=== PATIENT | female | born 1960 | race Caucasian/White ===

== ENCOUNTER → 2016-03-28 | Outpatient (REF) | payer BC, OTHER ==
[~2016-03-28] MED LIST: DIOV320T6 PO; IBUP600T26 PO; OMEP20CA3 PO; SING10TA32 PO
[2016-03-29 10:08] LABS: TOTAL VOLUME, URINE 2750 ML
== END ==
LOC: M LAB REF 08:30
PROVIDERS: ATTEND Internal Medicine Medical Oncology
DX: C90.00 Multiple myeloma not having achieved remission (principal)

== ENCOUNTER → 2016-03-29 | Outpatient (REF) | payer BC, OTHER ==
[2016-03-29 13:51] LABS: IMMUNOGLOBULIN A 25.2 MG/DL (70-400); IMMUNOGLOBULIN G 1200 MG/DL (681-1648); TOTAL PROTEIN 6.7 GM/DL (6.4-8.2)
[2016-03-29 13:52] LABS: IMMUNOGLOBULIN M 14.9 MG/DL (40-230)
[2016-03-31 00:07] LABS: FREE KAPPA LIGHT CHAINS SERUM 72.45 mg/L (3.30-19.40); FREE LAMBDA LIGHT CHAINS SERUM 10.96 mg/L (5.71-26.30); KAPPA/LAMBDA RATIO SERUM 6.61 (0.26-1.65)
[2016-04-01 12:45] LABS: ALBUMIN 3.98 GM/DL (3.29-5.55); ALBUMIN % 59.4 % (55.8-66.1); GAMMA GLOBULIN % 16.4 % (11.1-18.8)
== END ==
LOC: M LAB REF 12:36
PROVIDERS: ATTEND Internal Medicine Medical Oncology
DX: C90.00 Multiple myeloma not having achieved remission (principal)

== ENCOUNTER → 2016-05-07 | Outpatient (REF) | payer BC, OTHER ==
[2016-05-07 19:49] LABS: IMMUNOGLOBULIN G 1370 MG/DL (681-1648); TOTAL PROTEIN 7.3 GM/DL (6.4-8.2)
[2016-05-07 20:21] LABS: IMMUNOGLOBULIN A 24.8 MG/DL (70-400); IMMUNOGLOBULIN M 13.8 MG/DL (40-230)
[2016-05-09 13:10] LABS: ALBUMIN 4.25 GM/DL (3.29-5.55); ALBUMIN % 58.2 % (55.8-66.1); GAMMA GLOBULIN % 18.1 % (11.1-18.8)
[2016-05-10 00:08] LABS: FREE KAPPA LIGHT CHAINS SERUM 87.19 mg/L (3.30-19.40); FREE LAMBDA LIGHT CHAINS SERUM 9.1 mg/L (5.71-26.30); KAPPA/LAMBDA RATIO SERUM 9.58 (0.26-1.65)
== END ==
LOC: M LAB REF 16:51
PROVIDERS: ATTEND Internal Medicine Medical Oncology
DX: C90.00 Multiple myeloma not having achieved remission (principal)

== ENCOUNTER → 2016-06-24 | Outpatient (REF) | payer OTHER ==
[2016-06-24 19:50] LABS: IMMUNOGLOBULIN G 1870 MG/DL (681-1648); TOTAL PROTEIN 7.4 GM/DL (6.4-8.2)
[2016-06-24 20:43] LABS: IMMUNOGLOBULIN A 23.1 MG/DL (70-400); IMMUNOGLOBULIN M 15.9 MG/DL (40-230)
[2016-06-27 00:06] LABS: FREE KAPPA LIGHT CHAINS SERUM 234.94 mg/L (3.30-19.40); FREE LAMBDA LIGHT CHAINS SERUM 8.54 mg/L (5.71-26.30); KAPPA/LAMBDA RATIO SERUM 27.51 (0.26-1.65)
[2016-06-27 12:26] LABS: ALBUMIN 4.07 GM/DL (3.29-5.55); GAMMA GLOBULIN % 21.8 % (11.1-18.8)
== END ==
LOC: M LAB REF 16:55
PROVIDERS: ATTEND Internal Medicine Medical Oncology
DX: C90.00 Multiple myeloma not having achieved remission (principal)

== ENCOUNTER → 2016-07-02 | Outpatient (REF) | payer OTHER | LOC: M LAB REF 16:59 | PROVIDERS: ATTEND Internal Medicine Medical Oncology | DX: Z01.84 Encounter for antibody response examination (principal) ==

== ENCOUNTER → 2016-07-03 | Outpatient (CLI) | payer OTHER ==
--- NOTE | 2016-07-08 12:26 | REP ---
PET/CT: HISTORY: Restaging multiple myeloma. The patient is status post transplant in 2016 with sharp rise in kappa light chains. Question high marrow disease. COMPARISONS: No comparison PET/CT. Comparison CT study of the chest is from October 28, 2014. Skeletal survey and skull series from 06/24/2014. TECHNIQUE: 85 minutes following the intravenous injection of a 8.2 mCi dose of F-18 FDG, three-dimensional PET scintigraphy is acquired from the skull base to the proximal thighs. Triplanar noncontrast CT scanning is acquired through the same anatomic range for attenuation correction, and image registration with scan parameters optimized to minimize radiation exposure to the patient. PET scintigraphy and CT datasets were fused and displayed on a workstation with multiplanar and projection display capability. PET/CT FINDINGS: There is normal variant skeletal muscle uptake in the pectoralis major muscles, left greater than right as well as along the right latissimus dorsi muscle. No mass lesion is seen here. This is felt to be a normal variant. There is hypermetabolic uptake noted in a normal size left axillary lymph node. Maximum standard uptake value here is 5.4. The lymph node in question has a preserved hilar architecture and measures 8 x 15 mm. No other axillary hypermetabolic evon focus is seen. No abnormal hypermetabolic uptake is seen within the chest. The left thyroid gland is enlarged and somewhat heterogeneous but not hypermetabolic. In the abdomen and pelvis, normal hepatic, splenic, gastrointestinal, and genitourinary FDG accumulation is seen. The patient is status post cholecystectomy. No abnormal skeletal hypermetabolic uptake focus is appreciated. No pulmonary parenchymal abnormality. IMPRESSION: 1. Hypermetabolic uptake is seen in a morphologically normal appearing left axillary lymph node. This is of uncertain significance. 2. Heterogeneous enlargement left thyroid without hypermetabolic uptake. 3. No abnormal skeletal hypermetabolic uptake or other hypermetabolic focus seen. Signed by Juan Mratinez MD 07/08/2016 03:42 P
== END ==
LOC: M PLARAD 07:24
PROVIDERS: ATTEND Internal Medicine Medical Oncology
DX: C90.02 Multiple myeloma in relapse (principal); R76.8 Other specified abnormal immunological findings in serum; Z98.890 Other specified postprocedural states
CPT/HCPCS: 78815; A9552

== ENCOUNTER → 2016-07-25 | Outpatient (REF) | payer OTHER | LOC: M LAB REF 11:30 | PROVIDERS: ATTEND Internal Medicine Medical Oncology | DX: C90.01 Multiple myeloma in remission (principal) ==

== ENCOUNTER → 2016-08-08 | Outpatient (REF) | payer OTHER ==
[2016-08-08 17:46] LABS: IMMUNOGLOBULIN A 25.4 MG/DL (70-400); IMMUNOGLOBULIN G 2800 MG/DL (681-1648); IMMUNOGLOBULIN M 23.7 MG/DL (40-230); TOTAL PROTEIN 8.6 GM/DL (6.4-8.2)
[2016-08-09 14:13] LABS: ALBUMIN 4.07 GM/DL (3.29-5.55); ALBUMIN % 47.3 % (55.8-66.1); GAMMA GLOBULIN % 29.5 % (11.1-18.8)
[2016-08-11 00:06] LABS: BETA 2 MICROGLOBULIN 2.7 mg/L (0.6-2.4); FREE LAMBDA LIGHT CHAINS SERUM 13.9 mg/L (5.7-26.3); KAPPA/LAMBDA RATIO SERUM 48.13 (0.26-1.65)
== END ==
LOC: M LAB REF 16:52
PROVIDERS: ATTEND Internal Medicine Medical Oncology
DX: C90.00 Multiple myeloma not having achieved remission (principal)

== ENCOUNTER → 2016-09-17 | Outpatient (REF) | payer OTHER ==
[~2016-09-17] MED LIST changes: +IBUP-1022 PO; -IBUP600T26 PO
[2016-09-17 18:50] LABS: IMMUNOGLOBULIN G 1750 MG/DL (681-1648); TOTAL PROTEIN 7.1 GM/DL (6.4-8.2)
[2016-09-17 18:51] LABS: IMMUNOGLOBULIN A 18.5 MG/DL (70-400); IMMUNOGLOBULIN M 17.6 MG/DL (40-230)
[2016-09-18 13:03] LABS: ALBUMIN 3.78 GM/DL (3.29-5.55); ALBUMIN % 53.2 % (55.8-66.1); GAMMA GLOBULIN % 23.2 % (11.1-18.8)
[2016-09-20 00:07] LABS: BETA 2 MICROGLOBULIN 1.6 mg/L (0.6-2.4); FREE KAPPA LIGHT CHAINS SERUM 226.4 mg/L (3.3-19.4); FREE LAMBDA LIGHT CHAINS SERUM 6.8 mg/L (5.7-26.3); KAPPA/LAMBDA RATIO SERUM 33.29 (0.26-1.65)
== END ==
LOC: M LAB REF 17:07
PROVIDERS: ATTEND Internal Medicine Medical Oncology
DX: C90.00 Multiple myeloma not having achieved remission (principal)

== ENCOUNTER → 2016-10-15 | Outpatient (REF) | payer OTHER ==
[2016-10-15 18:45] LABS: IMMUNOGLOBULIN G 1780 MG/DL (681-1648); TOTAL PROTEIN 7.5 GM/DL (6.4-8.2)
[2016-10-15 18:46] LABS: IMMUNOGLOBULIN A 15.1 MG/DL (70-400); IMMUNOGLOBULIN M 20.1 MG/DL (40-230)
[2016-10-17 10:45] LABS: ALBUMIN 4.13 GM/DL (3.29-5.55)
[2016-10-17 10:46] LABS: GAMMA GLOBULIN % 21.9 % (11.1-18.8)
[2016-10-18 14:17] LABS: FREE KAPPA LIGHT CHAINS SERUM 296.3 mg/L (3.3-19.4); KAPPA/LAMBDA RATIO SERUM 42.33 (0.26-1.65)
== END ==
LOC: M LAB REF 16:28
PROVIDERS: ATTEND Internal Medicine Medical Oncology
DX: C90.00 Multiple myeloma not having achieved remission (principal)

== ENCOUNTER → 2016-10-18 | Outpatient (CLI) | payer OTHER ==
--- NOTE | 2016-10-18 14:34 | REPMRS ---
Patient History The patient states she had a clinical breast exam in 10/2016. Patient is postmenopausal and has history of Multiple Myeloma at age 54. No known family history of cancer. Digital Woman Screen Mammo: October 18, 2016 - Exam #: [id number] Bilateral CC and MLO view(s) were taken. Technologist: Angelica Abdi Technologist Prior study comparison: October 19, 2015, digital woman screen mammo performed at [facility] to [place]. June 25, 2012, digital woman screen mammo performed at [facility]. FINDINGS: There are scattered fibroglandular densities. There has been no change in the appearance of the mammogram from the prior studies. There is a mild amount of residual fibroglandular tissue which is fairly symmetric. There is no interval development of dominant mass, architectural distortion, or clustered microcalcification suggestive of malignancy. ASSESSMENT: BI-RADS/ACR category 1 mammogram. Negative. Recommendation Routine screening mammogram in 1 year (for women over age 40). This mammogram was interpreted with the aid of an FDA-approved computer-aided dectection system. Electronically Signed By: Ciro Ruth MD 10/18/16 [id number]
== END ==
LOC: M WHC 13:32
PROVIDERS: ATTEND Nurse Practitioner Family
DX: Z12.31 Encounter for screening mammogram for malignant neoplasm of breast (principal); Z78.0 Asymptomatic menopausal state

== ENCOUNTER → 2016-10-18 | Outpatient (REF) | payer OTHER | LOC: M SFHCWAGY 13:52 | PROVIDERS: ATTEND Nurse Practitioner Family | DX: Z12.4 Encounter for screening for malignant neoplasm of cervix (principal); Z12.12 Encounter for screening for malignant neoplasm of rectum; R87.615 Unsatisfactory cytologic smear of cervix ==

== ENCOUNTER → 2016-11-05 | Outpatient (REF) | payer OTHER ==
[2016-11-05 19:06] LABS: TOTAL PROTEIN 7.3 GM/DL (6.4-8.2)
[2016-11-07 14:25] LABS: ALBUMIN 4.02 GM/DL (3.29-5.55); ALBUMIN % 55.1 % (55.8-66.1); GAMMA GLOBULIN % 22.4 % (11.1-18.8)
[2016-11-09 00:06] LABS: FREE KAPPA LIGHT CHAINS SERUM 291.6 mg/L (3.3-19.4); FREE LAMBDA LIGHT CHAINS SERUM 8.8 mg/L (5.7-26.3); KAPPA/LAMBDA RATIO SERUM 33.14 (0.26-1.65)
== END ==
LOC: M LAB REF 16:56
PROVIDERS: ATTEND Internal Medicine Medical Oncology
DX: C90.00 Multiple myeloma not having achieved remission (principal)

== ENCOUNTER → 2016-12-05 | Outpatient (REF) | payer OTHER ==
[2016-12-05 20:04] LABS: IMMUNOGLOBULIN G 1760 MG/DL (681-1648); TOTAL PROTEIN 6.6 GM/DL (6.4-8.2)
[2016-12-05 21:33] LABS: IMMUNOGLOBULIN A 15.2 MG/DL (70-400); IMMUNOGLOBULIN M 20.6 MG/DL (40-230)
[2016-12-08 00:06] LABS: FREE KAPPA LIGHT CHAINS SERUM 310.2 mg/L (3.3-19.4); KAPPA/LAMBDA RATIO SERUM 28.2 (0.26-1.65)
[2016-12-09 10:48] LABS: ALBUMIN % 50.1 % (55.8-66.1)
[2016-12-09 10:49] LABS: ALBUMIN 3.31 GM/DL (3.29-5.55); GAMMA GLOBULIN % 21.7 % (11.1-18.8)
== END ==
LOC: M LAB REF 17:09
PROVIDERS: ATTEND Internal Medicine Medical Oncology
DX: C90.00 Multiple myeloma not having achieved remission (principal)

== ENCOUNTER → 2016-12-16 | Outpatient (REF) | payer OTHER ==
[2016-12-16 13:11] LABS: ALBUMIN 3.1 GM/DL (3.2-5.2); ALKALINE PHOSPHATASE 74 U/L (45-117); ALT/SGPT 27 U/L (12-78); ANION GAP 6 MEQ/L (8-16); AST/SGOT 15 U/L (15-37); BILIRUBIN,TOTAL 0.5 MG/DL (0.2-1.0); BLOOD UREA NITROGEN 10 MG/DL (7-18); CALCIUM LEVEL 8.4 MG/DL (8.5-10.1); CARBON DIOXIDE LEVEL 27 MEQ/L (21-32); CHLORIDE LEVEL 108 MEQ/L (98-107); CHOLESTEROL LEVEL 178 MG/DL (<200); GLOMERULAR FILTRATION RATE > 60.0 (>51); GLUCOSE, FASTING 82 MG/DL (70-105); POTASSIUM SERUM 3.8 MEQ/L (3.5-5.1); SODIUM LEVEL 141 MEQ/L (136-145); TOTAL PROTEIN 7.5 GM/DL (6.4-8.2); TRIGLYCERIDES LEVEL 90 MG/DL (<150)
== END ==
LOC: M SFHCPLAZ 10:47
PROVIDERS: ATTEND Nurse Practitioner Family
DX: E88.81 Metabolic syndrome and other insulin resistance (principal); E78.5 Hyperlipidemia, unspecified; E55.9 Vitamin D deficiency, unspecified

== ENCOUNTER → 2017-02-04 | Outpatient (REF) | payer OTHER | LOC: M SFHCWAGY 09:31 | PROVIDERS: ATTEND Nurse Practitioner Family | DX: Z12.4 Encounter for screening for malignant neoplasm of cervix (principal) ==

== ENCOUNTER → 2017-02-05 | Outpatient (CLI) | payer OTHER ==
--- NOTE | 2017-02-06 08:20 | REP ---
PELVIC ULTRASOUND: CLINICAL: Postmenopausal bleeding. TECHNIQUE: Transabdominal and pelvic ultrasound followed by transvaginal examination for better evaluation of the endometrium and adnexa. FINDINGS: Heterogeneous anteverted uterus deviates to the right and measures 5.9 x 2.6 x 3.7 cm. The endometrial complex measures 3.9 mm thickness. No discrete uterine or endometrial abnormalities are appreciated. Bilateral ovaries are normal in appearance. Right ovary measures 1.8 x 0.8 x 1.6 cm. Left ovary measures 2.1 x 0.9 x 1.5 cm. No pelvic fluid or adnexal mass lesions. Bladder is normal and measures 6.3 x 7.5 x 4.3 cm. IMPRESSION: Normal pelvic ultrasound.
== END ==
LOC: M WHC 09:28
PROVIDERS: ATTEND Nurse Practitioner Family
DX: N95.0 Postmenopausal bleeding (principal)

== ENCOUNTER → 2017-02-13 | Outpatient (REF) | payer OTHER ==
[2017-02-13 14:45] LABS: TOTAL PROTEIN 7.9 GM/DL (6.4-8.2)
[2017-02-13 16:08] LABS: IMMUNOGLOBULIN A 14.8 MG/DL (70-400)
[2017-02-13 16:09] LABS: IMMUNOGLOBULIN G 2440 MG/DL (681-1648); IMMUNOGLOBULIN M 24.7 MG/DL (40-230)
[2017-02-15 02:09] LABS: BETA 2 MICROGLOBULIN 2.7 mg/L (0.6-2.4); FREE KAPPA LIGHT CHAINS SERUM 636.6 mg/L (3.3-19.4); FREE LAMBDA LIGHT CHAINS SERUM 9.4 mg/L (5.7-26.3); KAPPA/LAMBDA RATIO SERUM 67.72 (0.26-1.65)
[2017-02-17 13:40] LABS: ALBUMIN 3.88 GM/DL (3.29-5.55); ALBUMIN % 49.1 % (55.8-66.1); GAMMA GLOBULIN % 28.2 % (11.1-18.8)
== END ==
LOC: M LAB REF 13:53
PROVIDERS: ATTEND Internal Medicine Medical Oncology
DX: C90.00 Multiple myeloma not having achieved remission (principal)

== ENCOUNTER → 2017-03-17 | Outpatient (REF) | payer BC, OTHER ==
[2017-03-17 14:36] LABS: IMMUNOGLOBULIN G 2570 MG/DL (681-1648); IMMUNOGLOBULIN M 21.3 MG/DL (40-230); TOTAL PROTEIN 8.3 GM/DL (6.4-8.2)
[2017-03-19 00:08] LABS: FREE KAPPA LIGHT CHAINS SERUM 710.8 mg/L (3.3-19.4); FREE LAMBDA LIGHT CHAINS SERUM 8.4 mg/L (5.7-26.3); KAPPA/LAMBDA RATIO SERUM 84.62 (0.26-1.65)
[2017-03-21 10:44] LABS: ALBUMIN 4.08 GM/DL (3.29-5.55); ALBUMIN % 49.1 % (55.8-66.1); ALPHA-1-GLOBULIN % 3.5 % (2.9-4.9); ALPHA-1-GLOBULINS 0.29 GM/DL (0.17-0.41); ALPHA-2-GLOBULINS % 8.6 % (7.1-11.8); BETA-1-GLOBULINS % 5.5 % (4.7-7.2); BETA-2-GLOBULINS % 3.4 % (3.2-6.5); GAMMA GLOBULIN % 29.9 % (11.1-18.8)
[2017-03-21 10:45] LABS: ALPHA-2-GLOBULINS 0.71 GM/DL (0.42-0.99); BETA-1-GLOBULINS 0.46 GM/DL (0.28-0.60); BETA-2-GLOBULINS 0.28 GM/DL (0.19-0.55); GAMMA GLOBULINS 2.48 GM/DL (0.65-1.58)
== END ==
LOC: M LAB REF 12:46
DX: C90.00 Multiple myeloma not having achieved remission (principal)
CPT/HCPCS: 84165

== ENCOUNTER → 2017-04-14 | Outpatient (REF) | payer BC ==
[2017-04-14 19:41] LABS: URINE TOTAL PROTEIN 40.7 MG/DL (0-12)
[2017-04-14 20:16] LABS: IMMUNOGLOBULIN G 2500 MG/DL (681-1648); IMMUNOGLOBULIN M 21.4 MG/DL (40-230); TOTAL PROTEIN 8.3 GM/DL (6.4-8.2)
[2017-04-14 20:45] LABS: IMMUNOGLOBULIN A < 7.8 MG/DL (70-400)
[2017-04-15 11:32] LABS: ALBUMIN 4.17 GM/DL (3.29-5.55); ALBUMIN % 50.3 % (55.8-66.1); ALPHA-1-GLOBULIN % 3.6 % (2.9-4.9); ALPHA-2-GLOBULINS 0.72 GM/DL (0.42-0.99); ALPHA-2-GLOBULINS % 8.7 % (7.1-11.8); BETA-1-GLOBULINS 0.42 GM/DL (0.28-0.60); BETA-2-GLOBULINS 0.27 GM/DL (0.19-0.55); BETA-2-GLOBULINS % 3.3 % (3.2-6.5); GAMMA GLOBULIN % 29.1 % (11.1-18.8); GAMMA GLOBULINS 2.42 GM/DL (0.65-1.58)
[2017-04-16 14:08] LABS: UPEP INTERPRETATION 2 M-SPIKES IN GAMMA; URINE VOLUME RANDOM ML
== END ==
LOC: M LAB REF 17:08
DX: C90.00 Multiple myeloma not having achieved remission (principal)
CPT/HCPCS: 84165

== ENCOUNTER → 2017-05-05 | Outpatient (CLI) | payer BC | LOC: M RAD 13:52 | DX: C90.00 Multiple myeloma not having achieved remission (principal) ==

== ENCOUNTER → 2017-05-14 | Outpatient (CLI) | payer BC | LOC: M CARPUL 09:23 | DX: C90.00 Multiple myeloma not having achieved remission (principal) | CPT/HCPCS: 93306 ==

== ENCOUNTER → 2017-05-26 | Outpatient (REF) | payer BC ==
[2017-05-26 20:03] LABS: URINE TOTAL PROTEIN 113.9 MG/DL (0-12)
[2017-05-26 20:40] LABS: IMMUNOGLOBULIN G 2680 MG/DL (681-1648); TOTAL PROTEIN 8.1 GM/DL (6.4-8.2)
[2017-05-26 20:50] LABS: IMMUNOGLOBULIN A < 7.8 MG/DL (70-400); IMMUNOGLOBULIN M 15.3 MG/DL (40-230)
[2017-05-28 11:08] LABS: ALBUMIN % 50.5 % (55.8-66.1); ALPHA-1-GLOBULIN % 3.7 % (2.9-4.9); ALPHA-2-GLOBULINS % 7.1 % (7.1-11.8)
[2017-05-28 11:09] LABS: ALBUMIN 4.09 GM/DL (3.29-5.55); ALPHA-2-GLOBULINS 0.58 GM/DL (0.42-0.99); BETA-1-GLOBULINS 0.41 GM/DL (0.28-0.60); BETA-1-GLOBULINS % 5.1 % (4.7-7.2); BETA-2-GLOBULINS 0.24 GM/DL (0.19-0.55); GAMMA GLOBULIN % 30.6 % (11.1-18.8); GAMMA GLOBULINS 2.48 GM/DL (0.65-1.58)
[2017-05-29 00:07] LABS: FREE KAPPA LIGHT CHAINS SERUM 1094.1 mg/L (3.3-19.4); FREE LAMBDA LIGHT CHAINS SERUM 3.8 mg/L (5.7-26.3); KAPPA/LAMBDA RATIO SERUM 287.92 (0.26-1.65)
[2017-05-29 00:07] LABS: BETA 2 MICROGLOBULIN 3.3 mg/L (0.6-2.4)
[2017-05-29 13:59] LABS: UPEP INTERPRETATION M-SPIKE IN GAMMA
== END ==
LOC: M LAB REF 16:54
DX: C90.00 Multiple myeloma not having achieved remission (principal)
CPT/HCPCS: 84165

== ENCOUNTER → 2017-06-23 | Outpatient (REF) | payer BC | LOC: M LAB REF 12:51 | DX: C90.00 Multiple myeloma not having achieved remission (principal) | CPT/HCPCS: 88300 ==

== ENCOUNTER → 2017-07-02 | Outpatient (REF) | payer BC ==
[2017-07-02 12:04] LABS: TOTAL 25(OH) VITAMIN D 52.3 NG/ML (30.0-100.0)
[2017-07-02 12:07] LABS: ALBUMIN 3.5 GM/DL (3.2-5.2); ALBUMIN/GLOBULIN RATIO 0.66 (1.00-1.93); ALKALINE PHOSPHATASE 62 U/L (45-117); ALT/SGPT 28 U/L (12-78); ANION GAP 4 MEQ/L (8-16); AST/SGOT 24 U/L (7-37); BILIRUBIN,TOTAL 0.7 MG/DL (0.2-1.0); BLOOD UREA NITROGEN 15 MG/DL (7-18); CALCIUM LEVEL 8.7 MG/DL (8.5-10.1); CARBON DIOXIDE LEVEL 28 MEQ/L (21-32); CHLORIDE LEVEL 107 MEQ/L (98-107); CREATININE FOR GFR 0.78 MG/DL (0.55-1.30); GLOMERULAR FILTRATION RATE > 60.0 (>51); GLUCOSE, FASTING 84 MG/DL (70-100); SODIUM LEVEL 139 MEQ/L (136-145); TOTAL PROTEIN 8.8 GM/DL (6.4-8.2)
== END ==
LOC: M SFHCPLAZ 09:01
DX: E88.81 Metabolic syndrome and other insulin resistance (principal); K21.9 Gastro-esophageal reflux disease without esophagitis; E55.9 Vitamin D deficiency, unspecified
CPT/HCPCS: 83735

== ENCOUNTER → 2017-08-04 | Outpatient (REF) | payer BC ==
[2017-08-04 15:46] LABS: IMMUNOGLOBULIN G 1280 MG/DL (681-1648); TOTAL PROTEIN 6.8 GM/DL (6.4-8.2)
[2017-08-04 16:28] LABS: IMMUNOGLOBULIN A < 7.8 MG/DL (70-400); IMMUNOGLOBULIN M 17.1 MG/DL (40-230)
[2017-08-05 14:43] LABS: ALBUMIN 3.99 GM/DL (3.29-5.55); ALBUMIN % 58.7 % (55.8-66.1); ALPHA-1-GLOBULINS 0.27 GM/DL (0.17-0.41); ALPHA-2-GLOBULINS 0.67 GM/DL (0.42-0.99); ALPHA-2-GLOBULINS % 9.8 % (7.1-11.8); BETA-1-GLOBULINS 0.45 GM/DL (0.28-0.60); BETA-1-GLOBULINS % 6.6 % (4.7-7.2); BETA-2-GLOBULINS 0.22 GM/DL (0.19-0.55); BETA-2-GLOBULINS % 3.3 % (3.2-6.5); GAMMA GLOBULIN % 17.6 % (11.1-18.8)
[2017-08-07 10:16] LABS: FREE KAPPA LIGHT CHAINS SERUM 33.1 mg/L (3.3-19.4); FREE LAMBDA LIGHT CHAINS SERUM 2.7 mg/L (5.7-26.3); KAPPA/LAMBDA RATIO SERUM 12.26 (0.26-1.65)
== END ==
LOC: M LAB REF 14:29
DX: C90.02 Multiple myeloma in relapse (principal); D70.1 Agranulocytosis secondary to cancer chemotherapy; T45.1X5A Adverse effect of antineoplastic and immunosuppressive drugs, initial encounter
CPT/HCPCS: 84165

== ENCOUNTER → 2017-09-08 | Outpatient (REF) | payer BC ==
[2017-09-08 14:53] LABS: IMMUNOGLOBULIN G 775 MG/DL (681-1648); TOTAL PROTEIN 6.5 GM/DL (6.4-8.2)
[2017-09-08 15:51] LABS: IMMUNOGLOBULIN A < 7.8 MG/DL (70-400); IMMUNOGLOBULIN M 8.64 MG/DL (40-230)
[2017-09-09 11:40] LABS: ALBUMIN 4.02 GM/DL (3.29-5.55); ALBUMIN % 61.9 % (55.8-66.1); ALPHA-1-GLOBULIN % 4.4 % (2.9-4.9); ALPHA-1-GLOBULINS 0.29 GM/DL (0.17-0.41); ALPHA-2-GLOBULINS 0.64 GM/DL (0.42-0.99); ALPHA-2-GLOBULINS % 9.9 % (7.1-11.8); BETA-1-GLOBULINS 0.47 GM/DL (0.28-0.60); BETA-1-GLOBULINS % 7.2 % (4.7-7.2); BETA-2-GLOBULINS 0.27 GM/DL (0.19-0.55); BETA-2-GLOBULINS % 4.2 % (3.2-6.5); GAMMA GLOBULIN % 12.4 % (11.1-18.8); GAMMA GLOBULINS 0.81 GM/DL (0.65-1.58)
[2017-09-10 00:08] LABS: FREE KAPPA LIGHT CHAINS SERUM 15.5 mg/L (3.3-19.4); KAPPA/LAMBDA RATIO SERUM 7.75 (0.26-1.65)
== END ==
LOC: M LAB REF 13:36
DX: C90.02 Multiple myeloma in relapse (principal); D70.1 Agranulocytosis secondary to cancer chemotherapy; T45.1X5A Adverse effect of antineoplastic and immunosuppressive drugs, initial encounter; T50.905A Adverse effect of unspecified drugs, medicaments and biological substances, initial encounter
CPT/HCPCS: 84165

== ENCOUNTER → 2017-09-15 | Outpatient (REF) | payer BC ==
[2017-09-15 18:45] LABS: IMMUNOGLOBULIN G 760 MG/DL (681-1648); TOTAL PROTEIN 6.3 GM/DL (6.4-8.2)
[2017-09-15 19:09] LABS: IMMUNOGLOBULIN A < 7.8 MG/DL (70-400); IMMUNOGLOBULIN M 11.5 MG/DL (40-230)
[2017-09-17 12:01] LABS: BETA 2 MICROGLOBULIN 2.1 mg/L (0.6-2.4)
[2017-09-17 12:01] LABS: FREE KAPPA LIGHT CHAINS SERUM 12.8 mg/L (3.3-19.4); FREE LAMBDA LIGHT CHAINS SERUM 1.8 mg/L (5.7-26.3); KAPPA/LAMBDA RATIO SERUM 7.11 (0.26-1.65)
[2017-09-17 12:31] LABS: ALBUMIN 3.99 GM/DL (3.29-5.55); ALBUMIN % 63.3 % (55.8-66.1); ALPHA-1-GLOBULINS 0.25 GM/DL (0.17-0.41); ALPHA-2-GLOBULINS 0.63 GM/DL (0.42-0.99); BETA-1-GLOBULINS 0.44 GM/DL (0.28-0.60); BETA-2-GLOBULINS 0.23 GM/DL (0.19-0.55); BETA-2-GLOBULINS % 3.6 % (3.2-6.5); GAMMA GLOBULIN % 12.1 % (11.1-18.8); GAMMA GLOBULINS 0.76 GM/DL (0.65-1.58)
== END ==
LOC: M LAB REF 14:00
DX: C90.02 Multiple myeloma in relapse (principal); D70.1 Agranulocytosis secondary to cancer chemotherapy; T45.1X5A Adverse effect of antineoplastic and immunosuppressive drugs, initial encounter; D69.59 Other secondary thrombocytopenia; T50.905A Adverse effect of unspecified drugs, medicaments and biological substances, initial encounter

== ENCOUNTER → 2017-09-29 | Outpatient (REF) | payer BC ==
[2017-09-29 13:58] LABS: IMMUNOGLOBULIN G 715 MG/DL (681-1648); TOTAL PROTEIN 6.2 GM/DL (6.4-8.2)
[2017-09-29 14:01] LABS: IMMUNOGLOBULIN A < 7.8 MG/DL (70-400); IMMUNOGLOBULIN M 7.85 MG/DL (40-230)
[2017-10-01 00:14] LABS: FREE KAPPA LIGHT CHAINS SERUM 14.1 mg/L (3.3-19.4); KAPPA/LAMBDA RATIO SERUM 7.05 (0.26-1.65)
[2017-10-02 12:40] LABS: ALBUMIN 3.91 GM/DL (3.29-5.55); ALBUMIN % 63.1 % (55.8-66.1); ALPHA-1-GLOBULIN % 4.5 % (2.9-4.9); ALPHA-1-GLOBULINS 0.28 GM/DL (0.17-0.41); ALPHA-2-GLOBULINS 0.67 GM/DL (0.42-0.99); ALPHA-2-GLOBULINS % 10.8 % (7.1-11.8); BETA-1-GLOBULINS 0.43 GM/DL (0.28-0.60); BETA-1-GLOBULINS % 6.9 % (4.7-7.2); BETA-2-GLOBULINS 0.25 GM/DL (0.19-0.55); BETA-2-GLOBULINS % 4.1 % (3.2-6.5); GAMMA GLOBULIN % 10.6 % (11.1-18.8); GAMMA GLOBULINS 0.66 GM/DL (0.65-1.58)
== END ==
LOC: M LAB REF 13:02
DX: C90.12 Plasma cell leukemia in relapse (principal); D70.1 Agranulocytosis secondary to cancer chemotherapy; T45.1X5A Adverse effect of antineoplastic and immunosuppressive drugs, initial encounter; G62.0 Drug-induced polyneuropathy; T50.905A Adverse effect of unspecified drugs, medicaments and biological substances, initial encounter
CPT/HCPCS: 84165

== ENCOUNTER → 2017-10-02 | Outpatient (REF) | payer BC | LOC: M LAB REF 12:47 | DX: R19.7 Diarrhea, unspecified (principal) | CPT/HCPCS: 87493 ==

== ENCOUNTER → 2017-10-20 | Outpatient (REF) | payer BC ==
[2017-10-20 14:10] LABS: IMMUNOGLOBULIN G 584 MG/DL (681-1648)
[2017-10-20 15:24] LABS: IMMUNOGLOBULIN A < 7.8 MG/DL (70-400)
[2017-10-21 14:38] LABS: ALBUMIN 3.75 GM/DL (3.29-5.55); ALBUMIN % 62.5 % (55.8-66.1); ALPHA-1-GLOBULIN % 5.1 % (2.9-4.9); ALPHA-1-GLOBULINS 0.31 GM/DL (0.17-0.41); ALPHA-2-GLOBULINS 0.68 GM/DL (0.42-0.99); ALPHA-2-GLOBULINS % 11.4 % (7.1-11.8); BETA-1-GLOBULINS 0.41 GM/DL (0.28-0.60); BETA-1-GLOBULINS % 6.9 % (4.7-7.2); BETA-2-GLOBULINS 0.25 GM/DL (0.19-0.55); BETA-2-GLOBULINS % 4.2 % (3.2-6.5); GAMMA GLOBULIN % 9.9 % (11.1-18.8)
[2017-10-21 14:39] LABS: GAMMA GLOBULINS 0.59 GM/DL (0.65-1.58)
[2017-10-21 15:19] LABS: FREE KAPPA LIGHT CHAINS SERUM 10.7 mg/L (3.3-19.4); FREE LAMBDA LIGHT CHAINS SERUM 1.9 mg/L (5.7-26.3); KAPPA/LAMBDA RATIO SERUM 5.63 (0.26-1.65)
== END ==
LOC: M LAB REF 13:05
DX: C90.02 Multiple myeloma in relapse (principal); D70.1 Agranulocytosis secondary to cancer chemotherapy
CPT/HCPCS: 84165

== ENCOUNTER → 2017-10-21 | Outpatient (REF) | payer BC | LOC: M SFHCWAGY 14:03 | DX: Z12.4 Encounter for screening for malignant neoplasm of cervix (principal) | CPT/HCPCS: G0123 ==

== ENCOUNTER → 2017-10-21 | Outpatient (CLI) | payer BC | LOC: M WHC 13:38 | DX: R92.8 Other abnormal and inconclusive findings on diagnostic imaging of breast (principal) | CPT/HCPCS: 77067 ==

== ENCOUNTER → 2017-11-10 | Outpatient (REF) | payer BC ==
[2017-11-11 00:20] LABS: IMMUNOGLOBULIN G 539 MG/DL (681-1648)
[2017-11-11 01:29] LABS: IMMUNOGLOBULIN M 6 MG/DL (40-230); TOTAL PROTEIN 5.8 GM/DL (6.4-8.2)
[2017-11-12 00:07] LABS: FREE KAPPA LIGHT CHAINS SERUM 9.2 mg/L (3.3-19.4); FREE LAMBDA LIGHT CHAINS SERUM <1.5 mg/L (5.7-26.3); KAPPA/LAMBDA RATIO SERUM >6.13 (0.26-1.65)
[2017-11-12 16:17] LABS: ALBUMIN 3.74 GM/DL (3.29-5.55); ALBUMIN % 64.5 % (55.8-66.1); ALPHA-1-GLOBULIN % 4.7 % (2.9-4.9); ALPHA-1-GLOBULINS 0.27 GM/DL (0.17-0.41); ALPHA-2-GLOBULINS 0.63 GM/DL (0.42-0.99); ALPHA-2-GLOBULINS % 10.8 % (7.1-11.8); BETA-1-GLOBULINS % 6.9 % (4.7-7.2); BETA-2-GLOBULINS 0.23 GM/DL (0.19-0.55); GAMMA GLOBULIN % 9.1 % (11.1-18.8); GAMMA GLOBULINS 0.53 GM/DL (0.65-1.58)
== END ==
LOC: M LAB REF 13:18
DX: C90.02 Multiple myeloma in relapse (principal); D70.1 Agranulocytosis secondary to cancer chemotherapy; T45.1X5A Adverse effect of antineoplastic and immunosuppressive drugs, initial encounter; D69.59 Other secondary thrombocytopenia; T50.905A Adverse effect of unspecified drugs, medicaments and biological substances, initial encounter; G62.0 Drug-induced polyneuropathy
CPT/HCPCS: 84165

== ENCOUNTER → 2018-08-10 | Outpatient (REF) | payer BC ==
[~2018-08-10] MED LIST changes: +ACYC400T PO; +BACT800T5 PO; +D-3-50003 PO; +DEXA4TA PO; +LEVO750T13 PO; +RANI150T PO; +TRAM50TA2 PO; +XARE10TA PO; +ZOLP5TAB PO
[2018-08-10 10:57] LABS: ALBUMIN 3.3 GM/DL (3.2-5.2); ALT/SGPT 28 U/L (12-78); BILIRUBIN,TOTAL 0.6 MG/DL (0.2-1.0); BLOOD UREA NITROGEN 14 MG/DL (7-18); CALCIUM LEVEL 8.2 MG/DL (8.5-10.1); CARBON DIOXIDE LEVEL 24 MEQ/L (21-32); CHLORIDE LEVEL 112 MEQ/L (98-107); CHOLESTEROL LEVEL 160 MG/DL (<200); CREATININE FOR GFR 0.74 MG/DL (0.55-1.30); GLOMERULAR FILTRATION RATE > 60.0 (>51); GLUCOSE, FASTING 84 MG/DL (70-100); HDL CHOLESTEROL 43 MG/DL (>40); LDL CHOLESTEROL 103 MG/DL (<100); NON-HDL-C 117 MG/DL; POTASSIUM SERUM 3.7 MEQ/L (3.5-5.1); SODIUM LEVEL 146 MEQ/L (136-145); TOTAL PROTEIN 6.5 GM/DL (6.4-8.2); TRIGLYCERIDES LEVEL 72 MG/DL (<150)
[2018-08-10 11:10] LABS: TOTAL 25(OH) VITAMIN D 39.7 NG/ML (30.0-100.0)
[2018-08-13 00:06] LABS: Lyme Disease IgG/IgM Antibodie <0.91 ISR (0.00-0.90); Lyme Disease IgM Ab Quantitati <0.80 index (0.00-0.79)
== END ==
LOC: M SFHCPLAZ 08:38
PROVIDERS: ATTEND Nurse Practitioner Family
DX: E78.5 Hyperlipidemia, unspecified (principal); M19.90 Unspecified osteoarthritis, unspecified site; E55.9 Vitamin D deficiency, unspecified

== ENCOUNTER 2018-09-07 19:07 | Emergency (ER) | payer BC ==
[~2018-09-07] VITALS: Ht 170.2 cm; Wt 118.2 kg
[~2018-09-07 19:07] MED LIST changes: -OMEP20CA3 PO; +OMEP20CA4 PO
[2018-09-07] MEDS ORDERED: NS 1,000 ML IV ONE (19:45)
[2018-09-07] MEDS ORDERED: ONDANSETRON 4MG/2ML VIAL (J2405) IV ONE (19:45)
[2018-09-07] MEDS ORDERED: PANTOPRAZOLE 40MG INJ (PROTONIX) (C9113) IV ONE (19:45)
[2018-09-07 20:00] LABS: BASO % 0.4 % (0.0-1.0); EOS # 0.1 10^3/uL (0.0-0.50); EOS % 2.8 % (0.0-3.0); HEMATOCRIT 39.2 % (36.0-47.0); HEMOGLOBIN 13.6 g/dl (12.0-15.5); LYMPH # 1.8 10^3/uL (1.5-4.5); LYMPH % 35.7 % (24.0-44.0); MEAN CORPUSCULAR HGB CONC 34.7 g/dl (32.0-36.5); MEAN CORPUSCULAR VOLUME 92.2 fl (80.0-96.0); MONO # 0.7 10^3/uL (0.0-0.8); MONO % 13.2 % (0.0-5.0); NEUTROPHILS # 2.4 10^3/uL (1.8-7.7); NEUTROPHILS % 47.7 % (36.0-66.0); PLATELET COUNT, AUTOMATED 159 10^3/uL (150-450); RED BLOOD COUNT 4.25 10^6/uL (4.00-5.40)
[2018-09-07 20:41] LABS: ALBUMIN 3.7 GM/DL (3.2-5.2); ALT/SGPT 31 U/L (12-78); BILIRUBIN,DIRECT 0.2 MG/DL (0.0-0.2); BILIRUBIN,TOTAL 0.6 MG/DL (0.2-1.0); BLOOD UREA NITROGEN 6 MG/DL (7-18); CALCIUM LEVEL 8.6 MG/DL (8.5-10.1); CARBON DIOXIDE LEVEL 24 MEQ/L (21-32); CHLORIDE LEVEL 111 MEQ/L (98-107); CREATININE FOR GFR 0.74 MG/DL (0.55-1.30); GLOMERULAR FILTRATION RATE > 60.0 (>51); GLUCOSE, FASTING 99 MG/DL (70-100); LIPASE 74 U/L (73-393); POTASSIUM SERUM 3.7 MEQ/L (3.5-5.1); SODIUM LEVEL 143 MEQ/L (136-145); TOTAL PROTEIN 7.3 GM/DL (6.4-8.2)
[2018-09-07 20:47] LABS: INR 1.09; PROTHROMBIN TIME 13.8 SECONDS (11.8-14.0)
--- NOTE | 2018-09-07 21:03 | REPVR ---
EXAM: CT Abdomen and Pelvis Without Contrast EXAM DATE/TIME: 09/07/2018 8:13 PM CLINICAL HISTORY: 58 years old, female; Abdominal pain; Generalized; Additional info: R/O obstruction TECHNIQUE: Imaging protocol: Axial computed tomography images of the abdomen and pelvis without contrast. Coronal and sagittal reformatted images were created and reviewed. Radiation optimization: All CT scans at this facility use at least one of these dose optimization techniques: automated exposure control; mA and/or kV adjustment per patient size (includes targeted exams where dose is matched to clinical indication); or iterative reconstruction. COMPARISON: PELVIS NON-OB COMPLETE US 02/05/2017 9:32 AM FINDINGS: Liver: Normal. No mass. Gallbladder and bile ducts: Status post cholecystectomy. Pancreas: Normal. No ductal dilation. Spleen: Normal. No splenomegaly. Adrenals: Normal. No mass. Kidneys and ureters: Normal. No hydronephrosis. Stomach and bowel: Fluid throughout much of the colon to the sigmoid which may reflect diarrhea. Nondilated fluid-filled small bowel which is nonspecific. Appendix: A normal appendix is seen. Intraperitoneal space: Normal. No free air. No significant fluid collection. Vasculature: Normal. No abdominal aortic aneurysm. Lymph nodes: Normal. No enlarged lymph nodes. Bladder: Unremarkable as visualized. Reproductive: Unremarkable as visualized. Bones/joints: Degenerative changes of the lumbar spine with facet arthropathy and mild anterolisthesis of L4 relative to L5. Soft tissues: Unremarkable. IMPRESSION: 1. Status post cholecystectomy. 2. Fluid throughout much of the colon to the sigmoid suggesting diarrhea. 3. Fluid-filled nondilated small bowel which may reflect minimal ileus or enteritis. No evidence of bowel obstruction. Electronically signed by: Kedar Ledesma On 09/07/2018 21:03:28 PM
[2018-09-07 22:16] VITALS: BP 137/65
[2018-09-24] MEDS ORDERED: POMA4CAP PO (07:01)
== END 2018-09-07 22:31 | disposition home or self-care (01) ==
LOC: M ED 19:07
DX: A08.4 Viral intestinal infection, unspecified (principal); C90.00 Multiple myeloma not having achieved remission; K21.9 Gastro-esophageal reflux disease without esophagitis; Z79.899 Other long term (current) drug therapy; Z91.040 Latex allergy status
CPT/HCPCS: 74176; 80048; 80076; 81001; 83690; 85025; 85610; 93041; 96361; 96374; 96375; 99284; C9113; J2405

== ENCOUNTER → 2018-10-22 | Outpatient (CLI) | payer BC ==
[~2018-10-22] MED LIST changes: +ASPI81TA26 PO; +POMA4CAP PO
--- NOTE | 2018-10-22 13:12 | REPMRS ---
Patient History The patient states she had a clinical breast exam in 10/2018. Patient is postmenopausal, had previous chemotherapy at age 54, and has history of basal and squamous cell skin cancer starting at age 40 and history or multiple myeloma at age 54. Family history of colorectal cancer in maternal cousin. No Hormone Replacement Therapy Digital Woman Screen Mammo: October 22, 2018 - Exam #: [id number] Bilateral CC and MLO view(s) were taken. Technologist: Lily Mar, Technologist Prior study comparison: October 31, 2017, right breast digital mammo diagnostic unilateral, performed at [facility]. October 21, 2017, bilateral digital woman screen mammo performed at [facility]. October 19, 2015, digital woman screen mammo performed at [facility]. FINDINGS: There are scattered fibroglandular densities. There has been no change in the appearance of the mammogram from the prior studies. There is a mild amount of scattered fibroglandular density which is fairly symmetric. There is no interval development of dominant mass, architectural distortion, or grouped microcalcification suggestive of malignancy. 3-D tomosynthesis shows no additional findings. Assessment: BI-RADS/ACR category 1 mammogram. Negative Mammogram. Recommendation Routine screening mammogram of both breasts in 1 year (for women over age 40). This patient's Lifetime Breast Cancer Risk is estimated at 7.2 %. This mammogram was interpreted with the aid of an FDA-approved computer-aided dectection system. Electronically Signed By: Miguel Martinez MD 10/22/18 [id number]
== END ==
LOC: M WHC 10:37
PROVIDERS: ATTEND Nurse Practitioner Family
DX: Z12.31 Encounter for screening mammogram for malignant neoplasm of breast (principal); Z78.0 Asymptomatic menopausal state; Z85.828 Personal history of other malignant neoplasm of skin; Z92.21 Personal history of antineoplastic chemotherapy; Z80.0 Family history of malignant neoplasm of digestive organs

== ENCOUNTER → 2018-10-22 | Outpatient (REF) | payer BC ==
[~2018-10-22] MED LIST changes: +D 202000 PO; +LEVO500T3 PO; +LIDO2.5C15 TOP; +MONT10TA2 PO; +OMEP1CAP73 PO; -OMEP20CA4 PO; +PROBCAP14 PO; +ZARX0.05 SC; +ZITH250T PO
== END ==
LOC: M SFHCWAGY 11:16
PROVIDERS: ATTEND Nurse Practitioner Family
DX: Z12.4 Encounter for screening for malignant neoplasm of cervix (principal)

== ENCOUNTER → 2018-10-26 | Outpatient (CLI) | payer BC ==
[~2018-10-26] MED LIST changes: +LIDOCAINE 1% MDV 20ML VIAL As Ordered ONE; +VANCOMYCIN 1000 MG/20 ML VIAL (J3370) IV ONE; +VANCOMYCIN HCL 500 MG/10 ML VIAL (J3370) As Ordered ONE
--- NOTE | 2018-10-26 16:19 | REP ---
IR Ultrasound and fluoroscopy-guided port placement. IR Ultrasound of the neck. Clinical information: Multiple myeloma. Physician: Dr. Mixon. Procedure: The patient was advised of the benefits, risks, and alternatives of the procedure and informed consent was obtained. A time-out was performed with verification of the patient's name, MRN, site of procedure and type of procedure to be performed. The patient was positioned in the supine position on the angiographic table. The site was prepped and draped in the usual sterile fashion. The physician spent 45 minutes of continuous face to face time with the patient. Ultrasound of the neck reveals occluded right internal jugular vein but a patent and compressible left internal jugular vein. A depositing machine operator radiograph reveals no pertinent abnormality. The neck and anterior chest wall were anesthetized with lidocaine. The left internal jugular vein was accessed using a microintroducer needle by a lateral approach. An 018 wire was advanced into the superior vena cava, the needle was removed and a microsheath was placed. An Amplatz wire was then passed into the inferior vena cava. An incision at the internal jugular vein access site and anterior chest wall were made using a scalpel. An incision was made at the anterior chest wall. A small pocket was created using a combination of blunt and sharp dissection. A tunneling device was then used to pass the catheter from the pocket to the neck puncture site. An 8-Canadian angio dynamics Smart power port was then positioned in the pocket. The catheter was then measured and cut. The introducer sheath was exchanged for a peel-away sheath. The catheter was passed through the peel-away sheath into the internal jugular vein and the peel-away sheath was removed. The port tip was positioned at cavoatrial junction. The port was then accessed with a Sun needle. The port flushes and aspirates well. The puncture site in the neck was closed. The chest wall incision was then closed with 2-0 Vicryl and 3-0 Monocryl. Glue and Steri-Strips were applied. A sterile dressing was then applied. The patient tolerated the procedure well and was returned to the PRU in stable condition. Estimated blood loss: <5 ml. Complications: None. Conclusion: 1. Successful placement of an 8-Canadian Angiodynamics Smart power port via the left internal jugular vein. The port is ready for immediate use. 2. Patient to follow up in IR clinic in 2 weeks. Thank you for this referral. Electronically Signed by Kimberley Mixon MD 10/26/2018 04:16 P
[2018-10-26 17:08] VITALS: BP 137/87
== END ==
LOC: M IRPRO 13:36
PROVIDERS: ATTEND Nurse Practitioner Family
DX: C90.00 Multiple myeloma not having achieved remission (principal)
CPT/HCPCS: 36563; 76937; 77001; 99152; 99153; C1788; C1894; J3370

== ENCOUNTER → 2018-11-17 | Outpatient (POV) | payer BC ==
[~2018-11-17] VITALS: Ht 170.2 cm; Wt 120.9 kg
[~2018-11-17] MED LIST changes: -D 202000 PO; -LEVO500T3 PO; -LIDO2.5C15 TOP; -LIDOCAINE 1% MDV 20ML VIAL As Ordered ONE; -MONT10TA2 PO; -OMEP1CAP73 PO; +OMEP20CA4 PO; -VANCOMYCIN 1000 MG/20 ML VIAL (J3370) IV ONE; -VANCOMYCIN HCL 500 MG/10 ML VIAL (J3370) As Ordered ONE; -ZARX0.05 SC; -ZITH250T PO
[2018-11-17 08:00] VITALS: BP 135/93
--- NOTE | 2018-11-17 08:18 | IPNPDOC ---
Text Note Date of Service The patient was seen on 11/17/18. NOTE Few weeks status post left-sided port placement. Patient doing well. Reports 3 treatments without any issues with infusion. No fevers or chills. No pus or discharge from the site. On examination: Patient appears well. Left chest wall port site is almost comple tely healed. No redness tenderness or discharge. Patient had questions regarding activity. I reassured her that she can resume all normal activities and not worry about the port. No further follow-up required unless initiated by the patient or infusion. Thank you for this referral. VS,Juliuse, I+O VS, Pedrobone, I+O Vital Signs Date Time Temp Pulse Resp B/P (MAP) Pulse Ox O2 Delivery O2 Flow Rate FiO2 11/17/18 08:00 96.9 70 18 135/93 (107) 100 ZACH ESPINOSA MD Nov 17, 2018 08:18
== END ==
LOC: M IRPOV 07:52
PROVIDERS: ATTEND Radiology Diagnostic Radiology
DX: Z45.2 Encounter for adjustment and management of vascular access device (principal)

== ENCOUNTER → 2019-08-03 | Outpatient (CLI) | payer BC ==
[~2019-08-03] MED LIST changes: +D 202000 PO; +LEVO500T3 PO; +LIDO2.5C15 TOP; +MONT10TA4 PO; +OMEP1CAP73 PO; -OMEP20CA4 PO; +PEPC10TA6 PO; +ZARX0.05 SC; +ZITH250T PO
--- NOTE | 2019-08-03 18:00 | REPPI ---
Clinical: Intermittent asthma . Comparison: 05/05/2017 . Technique: PA and lateral. Findings: The mediastinum and cardiac silhouette are normal. Hiovrr-H-Acbe identified with tip in the SVC. The lung gonsales demonstrate chronic-appearing changes without acute consolidation, effusion, or pneumothorax. The skeletal structures are intact and normal. Impression: 1. No acute cardiopulmonary process. Electronically Signed by Sedrick Franco MD 08/03/2019 05:51 P
== END ==
LOC: M PLAIMG 11:51
PROVIDERS: ATTEND Internal Medicine Pulmonary Disease
DX: J45.20 Mild intermittent asthma, uncomplicated (principal)

== ENCOUNTER → 2019-10-25 | Outpatient (CLI) | payer BC ==
[~2019-10-25] MED LIST changes: +METO5TAB2 PO; +NYST1POW9 TOP; +POMA2CAP PO; +POMA3CAP PO; +VOLT1GEL15 TOP
--- NOTE | 2019-10-25 17:41 | REPMRS ---
Patient History The patient states she had a clinical breast exam in October 2019. Patient has a history of multiple myeloma at age 55. Family history of colorectal cancer in maternal cousin. No Hormone Replacement Therapy Digital Woman Screen Mammo: October 25, 2019 - Exam #: [id number] Bilateral CC and MLO view(s) were taken. Technologist: Nevaeh Gibson, Technologist Prior study comparison: October 22, 2018, bilateral digital woman screen mammo performed at [facility]. October 21, 2017, bilateral digital woman screen mammo performed at [facility]. October 18, 2016, digital woman screen mammo performed at [facility]. FINDINGS: The breast tissue is almost entirely fat. The Volpara volumetric breast density category is: A. There is an infusaport projecting over the left axilla on the MLO view. There has been no change in the appearance of the mammogram from the prior studies. There is no interval development of dominant mass, architectural distortion, or grouped microcalcification typical of malignancy. 3-D tomosynthesis shows no additional findings. Assessment: BI-RADS/ACR category 2 mammogram. Benign Findings. Recommendation Routine screening mammogram of both breasts in 1 year (for women over age 40). This patient's Lifetime Breast Cancer RIsk is estimated at 7.0 %. This mammogram was interpreted with the aid of an FDA-approved computer-aided dectection system. Electronically Signed By: Miguel Martinez MD 10/25/19 [id number]
== END ==
LOC: M WHC 10:04
PROVIDERS: ATTEND Nurse Practitioner Family
DX: Z12.31 Encounter for screening mammogram for malignant neoplasm of breast (principal)

== ENCOUNTER → 2020-01-19 | Outpatient (REF) | payer BC | LOC: M SFHCPLAZ 16:54 | PROVIDERS: ATTEND Physician Assistant | DX: L73.9 Follicular disorder, unspecified (principal) ==

== ENCOUNTER → 2020-02-09 | Outpatient (CLI) | payer SELFPAY ==
[~2020-02-09] MED LIST changes: -MONT10TA4 PO; +MONT5TAB2 PO
== END ==
LOC: M LABSMTC 09:59
PROVIDERS: ATTEND Pediatrics
DX: Z11.59 Encounter for screening for other viral diseases (principal)

== ENCOUNTER 2020-04-07 10:13 | Emergency (ER) | payer BC ==
[~2020-04-07] VITALS: Ht 170.2 cm; Wt 129.3 kg
[~2020-04-07 10:13] MED LIST changes: +D31000TA2 PO; +MONT10TA10 PO; -MONT5TAB2 PO; +PROAAER10 INH
--- OUTSIDE RECORDS SUMMARY | 2020-04-07 10:18 | CCD ---
Author Author [facility] Organization [facility] Address Unknown Phone Unavailable Care Team Providers Care Communications Engineer Name Role Phone Nohemy Woodall Unavailable PROBLEMS Type Condition ICD9-CM Code [id number] Code Onset Dates Condition S tatus SNOMED Code Notes Problem Obstructive sleep apnea G47.33 Active 38889810 Problem Vitamin D deficiency E55.9 Active 85792121 Problem Other and unspecified hyperlipidemia E78.5 Act fuad 97481572 Problem History of basal cell cancer Z85.828 Active 428 029331 Problem Dysmetabolic syndrome X E88.81 Active 71115319 7 Problem Xerosis cutis L85.3 Active 54470784 Problem History of melanoma in situ Z87.898 Active 1251 732854332 Problem Post-menopausal bleeding N95.0 Active 0395691 9 Problem Insomnia due to medical condition G47.01 Active 134755688 Problem 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 20 Active 290053233 Problem Other chronic pain G89.29 Active 56411264 Problem Gastro-esophageal reflux disease without esophagitis K21.9 Active 259140688 Problem Vaginal spotting N92.0 Active 786302932 Problem Moderate mixed hyperlipidemia not requiring statin therapy E78.2 Active 296755355 Problem Melanocytic nevi of trunk D22.5 Active 071394 002 Problem History of basal cell carcinoma Z85.828 Active 962063442 Problem Asthma exacerbation J45.901 Active 311366294 Problem History of melanoma Z85.820 Active 193459686 Problem Localized osteoarthritis of both knees M17.0 A ctive 692900928 Problem Osteoarthritis M19.90 Active 129587846 Problem Seborrheic keratoses L82.1 Active 485962954 Problem Isabel angioma I78.1 Active 9419902 Problem Melanocytic nevi of face D22.30 Active 2639206 04 Problem Osteoarthritis of both knees, unspecified osteoarthritis t ype M17.0 Active [id number] ALLERGIES Allergen (clinical drug ingredient) Drug/Non Drug Allergy do cumented on EMR Reaction Allergy Type Onset Date Status escitalopram Lexapro Nausea/Vomiting, muscle cramps Drug Allergy Active amoxicillin / clavulanate Augmentin([facility] Code:[address]-65) yeast flare with perineal blisters Drug Allergy Active Latex Localized skin rash Non Drug Allergy Active ENCOUNTERS from 1960 to 2020-01-26 Encounter Location Date Provider Diagnosis [facility] Dermatology [id number] [place] [address] 1 8 Jan, 2020 Nohemy Woodall Seborrheic keratoses L82.1 ; Seborrheic keratoses, inflamed L82.0 ; Skin cancer screening Z12.83 ; History of basal cell carcinoma Z85.828 ; History of melanoma Z85.820 and Scabies B86 IMMUNIZATIONS Vaccine Route Administration Date Status Meningococcal 0.5mL (Menveo Groups A,C,Y & W-135) IM Intramuscul ar July 16, 2017 Administered Pneumococcal Adult 0.5mL (Pneumovax 23) IM Intramuscular July 20, 2018 Administered Hepatitis A Adult 1.0mL (Havrix) IM Intramuscular September 18, 2016 Administered Hepatitis A Adult 1.0mL (Havrix) IM Intramuscular July 16, 2017 Administered HIB 0.5mL IM Intramuscular September 18, 2016 Administered Pneumococcal 0.5mL (Prevnar 13) IM Intramuscular July 16, 2017 Administered Pneumococcal 0.5mL (Prevnar 13) IM Intramuscular Nov 19, 2016 Administered Pneumococcal 0.5mL (Prevnar 13) IM Intramuscular September 18, 2016 Administered MAYH-ZyqJ-RAQ 0.5mL (Pediarix) IM Intramuscular July 16, 2017 Administered HMOI-HcrO-MTL 0.5mL (Pediarix) IM Intramuscular September 18, 2016 Administered Meningococcal IM Intramuscular September 18, 2016 Administered Influenza (6mo & up) Fluzone IM Intramuscular Dec 29, 2013 Ad ministered HIB 0.5mL IM Intramuscular July 16, 2017 Administered SOCIAL HISTORY Tobacco Use: Social History Observation Description Date Details (start date - stop date) Never Smoker Sex Assigned At : Social History Observation Description Sex Assigned At Unknown Education: Question Answer Notes Level of Education: Not Finished College Audit Question Answer Notes Total Score: 0 Interpretation: Alcohol Education Language: Question Answer Notes Languages spoken: Indonesian Catholic: Question Answer Notes Catholic 08 [employer] Sexual Hx: Question Answer Notes Had sex in the last 12 months (vaginal, oral, or anal)? Yes Have you ever had an STD? No with Men only Drug and Alcohol Question Answer Notes Total Score: 0 Interpretation: No problems reported Alcohol Screening: Question Answer Notes Did you have a drink containing alcohol in the past year? No Points 0 Interpretation Negative BMI Care Goal Follow-Up Question Answer Notes Above Normal BMI Follow-Up Giving encouragement to exercise Tobacco Use: Question Answer Notes Are you a: never smoker never smoker REASON FOR REFERRAL No Information VITAL SIGNS Weight 289 lbs Jan, Height 66 in Jan, BMI 46.64 kg/m2 Jan, Blood pressure systolic 142 mm Hg Jan, Blood pressure diastolic 76 mm Hg Jan, MEDICATIONS Medication SIG (Take, Route, Frequency, Duration) Notes Start Da te End Date Status Multivitamins 1 tab Orally daily Act fuad immodium 1 mg 1 tab Oral PRN for 30 day(s) Active Tramadol HCl 50 MG 1.5 tabs Orally every 6 hour s as needed for pain/MMD#6 for 30 Days Active Robaxin 500 MG 2 tablets Orally QID prn for 5 days Dec, Active Doxycycline Hyclate 100 MG 1 capsule Orally Twice a day for 10 d ay(s) Jan, Active Famotidine 40 MG 1 tablet at bedtime Orally Once a day for 90 da y(s) Aug, Active Xopenex HFA 45 MCG/ACT 1 puff as needed Inhalation every 4 hrs Nov, Active Pomalyst Active Triamcinolone Acetonide 0.1 % 1 application Externally Twice a day as needed for itching for 14 days Jan, Active May Have chemo/ palmolith Active Acyclovir 400 MG 1 tablet Orally Twice a day Active Voltaren 1 % 2 grams to affected area of back Transde rmal Q6 hours for 10 days Dec, Active Vitamin D 2000 UNIT 3 tablets Orally Once a day Active Zolpidem Tartrate 5 MG 1 tablet at bedtime Orally/1 68827837 Once a day as needed Active Sulfamethoxazole-Trimethoprim 800-160 MG 1 tablet Orally Once a day on M,W,F Active Singulair 10 MG 1 tablet Orally Once a day for 90 day(s) Active Dexamethasone 4 MG 5 tabs on day of chemo then 5 tabs the day after Orally per directions qweek for 30 days Oct, Act fuad Aspir-81 Active PROCEDURES No Information RESULTS Component Value Reference Range WOUND CULTURE Reviewed date:01/24/2020 11:19:07 Interpretation: Performing Lab:[facility], [facility] [address] [place], [place] [address] , ,[place] [address] WOUND CULTURE FULL REPORT IN LAB NOTES (eCW and Medent). WOUND CULTURE WOUND CULTURE ORGANISM 1: STAPHYLOCOCCUS SP COAG NEG WOUND CULTURE WOUND CULTURE QUANTITY OF GROWTH FEW WOUND CULTURE WOUND CULTURE WOUND CULTURE ORGANISM 1: STAPHYLOCOCCUS SP COAG NEG WOUND CULTURE WOUND CULTURE STAPHYLOCOCCUS SP COAG NEG: REACTION WOUND CULTURE ICR (INDUCIBLE CC RESISTANCE) IV ICR TEST RESULT WOUND CULTURE TETRACYCLINE PO 250 mg qid <=1 WOUND CULTURE PENICILLIN G IV 1 mu q6H >=0.5 WOUND CULTURE PENICILLIN G IV 1 mu q6h >=0.5 WOUND CULTURE PENICILLIN G PO 250mg q6h fasting >=0.5 WOUND CULTURE TRIMETHOPRIM/SULFAMETHOXAZ OLE IV 160mg TMP & 800mg SMXq6h >=320 WOUND CULTURE TRIMETHOPRIM/SULFAMETHOXAZ OLE PO Bactrim DS Bid >=320 WOUND CULTURE ERYTHROMYCIN IV 500mg q6h >=8 WOUND CULTURE ERYTHROMYCIN PO 500mg q6h >=8 WOUND CULTURE GENTAMICIN IV 80mg q8h <=0.5 WOUND CULTURE CLINDAMYCIN IV 600mg q6h 0.25 WOUND CULTURE CLINDAMYCIN PO 150mg q6h 0.25 WOUND CULTURE OXACILLIN IV 500mg q6h <=0.25 WOUND CULTURE VANCOMYCIN IV 500mg q8h 1 WOUND CULTURE LINEZOLID (ZYVOX) IV 600MG Q12HR 1 WOUND CULTURE LINEZOLID (ZYVOX) PO 600MG Q12HR 1 WOUND CULTURE An isolate with a (+) POSITIVE ICR test is considered WOUND CULTURE CLINDAMYCIN RESISTANT; however, clindamy imer may still WOUND CULTURE be effective in some patients. WOUND CULTURE An isolate with a (-) NEGATIVE ICR test is considered WOUND CULTURE CLIDAMYCIN SENSITIVE. WOUND CULTURE Oxacillin result predicts oliva sceptibility to all penicillinase-stable WOUND CULTURE penicillins (Nafcillin, Dicl oxacilin), Cephalosporins, Carbapenems, WOUND CULTURE Amoxicillin/Clavulanate & Am picillin/Sulbactam per C[facility]I standards. REASON FOR VISIT perfers female, fbse yearly MEDICAL (GENERAL) HISTORY Type Description Date Medical History Asthmatic/ excercise induced Medical History Hx of HTN - resolved, no meds Medical History Hx BCC R medial cheek 05/2009 Medical History Hx MM in situ R medial Clavicle 05/2009 Medical History allergic rhinitis Medical History Esophageal reflux Medical History osteoarthritis - bilateral knees - ortho Medical History sleep apnea - on CPAP per pulmonary Medical History Multiple Myeloma, ISS stage 1 and DSS Stage lllA, IgG [place]. 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 - [facility] Medical History [place] Medical History Hx DVT 07/07/15: Right IJ/SC line associa kisha - tx x 3 months Surgical History Gallbladder removal 03/2008 Surgical History D&C/hysteroscopy 2011 Surgical History basal cell chin/face Surgical History endoscopy and colonoscpy neg 2010 Surgical History melanoma excision, right side of neck-cl avicle area 2009 Surgical History Bone Marrow Transplant--[place] Surgical History Bone Marrow biopsy 06/18 Surgical History colonoscopy at age 50 Surgical History Port Placed 2018 Hospitalization History side effect of zometa 07/2014 Goals Section No Information Health Concerns No Information MEDICAL EQUIPMENT No Information MENTAL STATUS No Information FUNCTIONAL STATUS No Information ASSESSMENTS Encounter Date Diagnosis Assessment Notes Treatment Notes Treatm ent Clinical Notes Jan, Seborrheic keratoses (ICD-10 - L82.1) Benign Lesion Counseling. The patient was extensively counseled regarding the benign nature of the lesion but that skin cancer may arise in this area just as it would anywhere on their skin. For that reason, return to clinic was recommended for any acute changes, itching, burning, or bleeding. The patient was educated that benign lesions are not a covered insurance benefit and treatment would be elective and cosmetic. They expressed understanding. Jan, Seborrheic keratoses, inflamed (ICD-10 - L82.0) Cryotherapy x [ 1] number of sites. [place] protocol was followed in compliance with [facility] standards. Patient was counseled regarding the indication for treatment (precancerous state for actinic keratosis or cosmetic reasons if done for seborrheic keratoses, acrochordons or warts) as well as, the method and expected results to include compromise of the skin barrier, bleeding, scarring/white area, redness at site, lesion recurrence, and pain. Patient was consented to the risks and benefits of the procedure and gave informed consent. Lesion(s) with locations as indicated in the physical examination were treated. Lesion(s) were treated with 2 cycles of liquid nitrogen with a thaw time of at least ten seconds. Therapy was applied in a pulsed fashion to minimize collateral tissue injury. Patient was instructed to use Vaseline ointment to the area(s) until healed. Patient tolerated the procedure well and left in stable condition. Pain before and after the procedure were assessed to not be significantly different than baseline. Jan, Skin cancer screening (ICD-10 - Z12.83) Patient counseled on signs and symptoms of skin cancer including ABCDE's of Melanoma. Patient counseled to wear sunscreen or use sun protective clothing when outdoors. Avoid peak hours of sun between 10-2. Patient instructed to call with any new or changing lesions. Jan, History of basal cell carcinoma (ICD-10 - Z85.82 8) No evidence of recurrence Jan, History of melanoma (ICD-10 - Z85.820) No evidence of recurrence Jan, Scabies (ICD-10 - B86) Strongly recommend treatment with Elimite cream-proper application discussed. Bacterial C&S pustule L thigh PLAN OF TREATMENT Medication Medication Name Sig Start Date Stop Date Doxycycline Hyclate 100 MG 1 capsule Orally Twice a day for 10 day(s) Jan, Triamcinolone Acetonide 0.1 % 1 application Externally Twice a day as needed for itching for 14 days Jan, Treatment Notes Assessment Notes Clinical Notes Seborrheic keratoses Benign Lesion Couns eli. The patient was extensively counseled regarding the benign nature of the lesion but that skin cancer may arise in this area just as it would anywhere on their skin. For that reason, return to clinic was recommended for any acute changes, itching, burning, or bleeding. The patient was educated that benign lesions are not a covered insurance benefit and treatment would be elective and cosmetic. They expressed understanding. Seborrheic keratoses, inflamed Cryothera py x [ 1] number of sites. [place] protocol was followed in compliance with [facility] standards. Patient was counseled regarding the indication for treatment (precancerous state for actinic keratosis or cosmetic reasons if done for seborrheic keratoses, acrochordons or warts) as well as, the method and expected results to include compromise of the skin barrier, bleeding, scarring/white area, redness at site, lesion recurrence, and pain. Patient was consented to the risks and benefits of the procedure and gave informed consent. Lesion(s) with locations as indicated in the physical examination were treated. Lesion(s) were treated with 2 cycles of liquid nitrogen with a thaw time of at least ten seconds. Therapy was applied in a pulsed fashion to minimize collateral tissue injury. Patient was instructed to use Vaseline ointment to the area(s) until healed. Patient tolerated the procedure well and left in stable condition. Pain before and after the procedure were assessed to not be significantly different than baseline. Skin cancer screening Patient counseled on signs and symptoms of skin cancer including ABCDE's of Melanoma. Patient counseled to wear sunscreen or use sun protective clothing when outdoors. Avoid peak hours of sun between 10-2. Patient instructed to call with any new or changing lesions. History of basal cell carcinoma No evide nce of recurrence History of melanoma No evidence of recur rence Scabies Strongly recommend t reatment with Elimite cream-proper application discussed.Bacterial C&S pustule L thigh Next Appt Details 1 Year Reason:FBSE Provider Name:Celi Campo, 2020-09-29 10:3 0:00 AM, [address] [place], [address], Provider Name:Nohemy Woodall, 07:45:00 AM, [address] [facility], 1st Floor, [place], [address], Follow Up:1 YearFBSE Insurance Providers Payer Name Payer Address Payer Phone Insured Name Patient Relati onship to Insured Coverage Start Date Coverage End Date [employer] BLAIR PPO [phone] [facility] [id number] [place]
--- OUTSIDE RECORDS SUMMARY | 2020-04-07 10:18 | CCD ---
Author Author [facility] Organization [facility] Address Unknown Phone Unavailable Care Team Providers Care Gravel Weigher Name Role Phone Celi Campo Unavailable PROBLEMS Type Condition ICD9-CM Code OZQ79-VD Code Onset Dates Condition S tatus SNOMED Code Notes Problem Obstructive sleep apnea G47.33 Active 55370035 Problem Vitamin D deficiency E55.9 Active 77131494 Problem Other and unspecified hyperlipidemia E78.5 Act fuad 34208358 Problem History of basal cell cancer Z85.828 Active 428 102181 Problem Dysmetabolic syndrome X E88.81 Active 88828078 7 Problem Xerosis cutis L85.3 Active 27473479 Problem History of melanoma in situ Z87.898 Active 1251 068298821 Problem Post-menopausal bleeding N95.0 Active 9000473 9 Problem Insomnia due to medical condition G47.01 Active 365698096 Problem 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 20 Active 204987798 Problem Other chronic pain G89.29 Active 84751257 Problem Gastro-esophageal reflux disease without esophagitis K21.9 Active 551352134 Problem Vaginal spotting N92.0 Active 630616558 Problem Moderate mixed hyperlipidemia not requiring statin therapy E78.2 Active 317979032 Problem Melanocytic nevi of trunk D22.5 Active 484007 002 Problem History of basal cell carcinoma Z85.828 Active 375809773 Problem Asthma exacerbation J45.901 Active 552381037 Problem History of melanoma Z85.820 Active 674067821 Problem Localized osteoarthritis of both knees M17.0 A ctive 557861054 Problem Osteoarthritis M19.90 Active 006898433 Problem Seborrheic keratoses L82.1 Active 958083707 Problem Isabel angioma I78.1 Active 9290396 Problem Melanocytic nevi of face D22.30 Active 2108291 04 Problem Osteoarthritis of both knees, unspecified osteoarthritis t ype M17.0 Active 256931966001726 ALLERGIES Allergen (clinical drug ingredient) Drug/Non Drug Allergy do cumented on EMR Reaction Allergy Type Onset Date Status escitalopram Lexapro Nausea/Vomiting, muscle cramps Drug Allergy Active amoxicillin / clavulanate Augmentin([facility] Code:[address]-53) yeast flare with perineal blisters Drug Allergy Active Latex Localized skin rash Non Drug Allergy Active ENCOUNTERS from 1960 to 2020-02-18 Encounter Location Date Provider Diagnosis [address] [address] 24 Aug, 2 020 Celi Campo Gastro-esophageal reflux disease without esophagitis K21.9 ; Mild intermittent asthma without complication J45.20 ; Seasonal allergic rhinitis, unspecified allergic rhinitis trigger J30.2 ; Osteoarthritis of both knees, unspecified osteoarthritis type M17.0 ; Insomnia due to medical condition G47.01 ; Obstructive sleep apnea G47.33 and Hx of multiple myeloma Z85.79 IMMUNIZATIONS Vaccine Route Administration Date Status Pneumococcal Adult 0.5mL (Pneumovax 23) IM Intramuscular July 20, 2018 Administered Hepatitis A Adult 1.0mL (Havrix) IM Intramuscular July 16, 2017 Administered Meningococcal 0.5mL (Menveo Groups A,C,Y & W-135) IM Intramuscul ar July 16, 2017 Administered YOYE-WpyB-IRE 0.5mL (Pediarix) IM Intramuscular July 16, 2017 Administered HIB 0.5mL IM Intramuscular September 18, 2016 Administered Pneumococcal 0.5mL (Prevnar 13) IM Intramuscular July 16, 2017 Administered Pneumococcal 0.5mL (Prevnar 13) IM Intramuscular Nov 19, 2016 Administered Hepatitis A Adult 1.0mL (Havrix) IM Intramuscular September 18, 2016 Administered Pneumococcal 0.5mL (Prevnar 13) IM Intramuscular September 18, 2016 Administered RBFA-KzoA-WVJ 0.5mL (Pediarix) IM Intramuscular September 18, 2016 [...] Education Language: Question Answer Notes Languages spoken: Greek Synagogue: Question Answer Notes Synagogue 08 [employer] Sexual Hx: Question Answer Notes Had sex [...] FOR REFERRAL No Information VITAL SIGNS Weight 291.6 lbs Aug, Height 66 in Aug, BMI 47.06 kg/m2 Aug, Heart Rate 71 /min Aug, Respiratory Rate 18 /min Aug, Temperature 98.5 degrees Fahrenheit Aug, Oximetry 100 Aug, Blood pressure systolic 120 mm Hg Aug, Blood pressure diastolic 80 mm Hg Aug, MEDICATIONS Medication SIG (Take, Route, Frequency, Duration) Notes Start Da te End Date Status immodium 1 mg 1 tab Oral PRN for 30 day(s) Active Aspir-81 Active Doxycycline Hyclate 100 MG 1 capsule Orally Twice a day for 10 d ay(s) Jan, Active Robaxin 500 MG 2 tablets Orally QID prn for 5 days Dec, Active Multivitamins 1 tab Orally daily Act fuad Famotidine 40 MG 1 tablet at bedtime Orally Once a day for 90 da y(s) Aug, Active Xopenex HFA 45 MCG/ACT 1 puff as needed Inhalation every 4 hrs Nov, Active Pomalyst Active Triamcinolone Acetonide 0.1 % 1 application Externally Twice a day as needed for itching for 14 days Jan, Active Tramadol HCl 50 MG 1.5 tabs Orally every 6 hour s as needed for pain/MMD#6 for 30 Days Active Acyclovir 400 MG 1 tablet Orally Twice a day Active Voltaren 1 % 2 grams to affected area of back Transde rmal Q6 hours for 10 days Dec, Active Sulfamethoxazole-Trimethoprim 800-160 MG 1 tablet Orally Once a day on M,W,F Active Zolpidem Tartrate 5 MG 1 tablet at bedtime Orally/1 28678992 Once a day as needed Active May Have chemo/ palmolith Active Singulair 10 MG 1 tablet Orally Once a day for 90 day(s) Active Dexamethasone 4 MG 5 tabs on day of chemo then 5 tabs the day after Orally per directions qweek for 30 days Oct, Act fuad Vitamin D 2000 UNIT 3 tablets Orally Once a day Active PROCEDURES No Information RESULTS No Results REASON FOR VISIT 1 year labs MEDICAL (GENERAL) HISTORY Type Description Date Medical [...] stage 1 and DSS Stage lllA, IgG [place]. 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 - [facility] Medical History [place] Medical History Hx DVT 07/07/15: Right IJ/SC line associa kisha - tx x 3 months Surgical History Gallbladder removal 03/2008 Surgical History D&C/hysteroscopy 2011 Surgical History basal cell chin/face Surgical History endoscopy and colonoscpy neg 2010 Surgical History melanoma excision, right side of neck-cl avicle area 2009 Surgical History Bone Marrow Transplant--[place] Surgical History Bone Marrow biopsy 06/18 Surgical History colonoscopy at age 50 Surgical History Port Placed 2018 Hospitalization History side effect of zometa 07/2014 Goals Section No Information Health Concerns No Information MEDICAL EQUIPMENT No Information MENTAL STATUS No Information FUNCTIONAL STATUS No Information ASSESSMENTS Encounter Date Diagnosis Assessment Notes Treatment Notes Treatm ent Clinical Notes Aug, Gastro-esophageal reflux dis ease without esophagitis (ICD-10 - K21.9) Aug, Mild intermittent asthma without complication (I CD-10 - J45.20) Aug, Seasonal allergic rhinitis, unspecified allergic rhinitis trigger (ICD-10 - J30.2) Aug, Osteoarthritis of both knees , unspecified osteoarthritis type (ICD- 10 - M17.0) Aug, Insomnia due to medical condition (ICD-10 - G47. 01) Aug, Obstructive sleep apnea (ICD-10 - G47.33) continues CPAP per pulmonology Aug, Hx of multiple myeloma (ICD-10 - Z85.79) follows with [facility] and Zoë Singleton via [facility] PLAN OF TREATMENT Medication Medication Name Sig Start Date Stop Date Tramadol HCl 50 MG 1.5 tabs Orally every 6 hour s as needed for pain/MMD#6 for 30 Days Triamcinolone Acetonide 0.1 % 1 application Externally Twice a day as needed for itching for 14 days Jan, Doxycycline Hyclate 100 MG 1 capsule Orally Twice a day for 10 day(s) Jan, Treatment Notes Assessment Notes Clinical Notes Obstructive sleep apnea continues CPAP per pulmonology Hx of multiple myeloma follows with [facility] and Michelle Singleton via [facility] Next Appt Details 1 Year Reason:annual Provider Name:Celi Campo, 2020-09-29 10:3 0:00 AM, [address] [place], [address], Provider Name:Nohemy Woodall, 07:45:00 AM, [address] [facility], [address] [place] [address], [place], [address], Follow Up:1 Yearannual Insurance Providers Payer Name Payer Address Payer Phone Insured Name Patient Relati onship to Insured Coverage Start Date Coverage End Date [employer] BLAIR PPO [id number] [facility] [id number] [address]
--- OUTSIDE RECORDS SUMMARY | 2020-04-07 10:18 | CCD ---
Author Author [facility] Organization [facility] Address Unknown Phone Unavailable Care Team Providers Care Assistant Speech Language Pathologist Name Role Phone Celi Campo Unavailable PROBLEMS Type Condition ICD9-CM Code [id number] Code Onset Dates Condition S tatus SNOMED Code Notes Problem Obstructive sleep apnea G47.33 Active 31420636 Problem Vitamin D deficiency E55.9 Active 60031647 Problem Other and unspecified hyperlipidemia E78.5 Act fuad 89522995 Problem History of basal cell cancer Z85.828 Active 428 329660 Problem Dysmetabolic syndrome X E88.81 Active 28307335 7 Problem Xerosis cutis L85.3 Active 02947833 Problem History of melanoma in situ Z87.898 Active 1251 383798509 Problem Post-menopausal bleeding N95.0 Active 7180601 9 Problem Insomnia due to medical condition G47.01 Active 176388705 Problem 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 20 Active 760860533 Problem Other chronic pain G89.29 Active 48396229 Problem Gastro-esophageal reflux disease without esophagitis K21.9 Active 383985579 Problem Vaginal spotting N92.0 Active 755773254 Problem Moderate mixed hyperlipidemia not requiring statin therapy E78.2 Active 323397834 Problem Melanocytic nevi of trunk D22.5 Active 817943 002 Problem History of basal cell carcinoma Z85.828 Active 177180167 Problem Asthma exacerbation J45.901 Active 585355169 Problem History of melanoma Z85.820 Active 554791454 Problem Localized osteoarthritis of both knees M17.0 A ctive 095812120 Problem Osteoarthritis M19.90 Active 136852608 Problem Seborrheic keratoses L82.1 Active 834159198 Problem Isabel angioma I78.1 Active 5237581 Problem Melanocytic nevi of face D22.30 Active 6791715 04 Problem Osteoarthritis of both knees, unspecified osteoarthritis t ype M17.0 Active 585986660107076 ALLERGIES Allergen (clinical drug ingredient) Drug/Non Drug Allergy do cumented on EMR Reaction Allergy Type Onset Date Status escitalopram Lexapro Nausea/Vomiting, muscle cramps Drug Allergy Active amoxicillin / clavulanate Augmentin([facility] Code:[address]-34) yeast flare with perineal blisters Drug Allergy Active Latex Localized skin rash Non Drug Allergy Active ENCOUNTERS from 1960 to 2020-02-11 Encounter Location Date Provider Diagnosis [address] [address] 10 Jan, 2 020 Celi Campo Osteoarthritis of both knees, unspecified osteoarthritis type M17.0 IMMUNIZATIONS Vaccine Route Administration Date Status Meningococcal [...] 13) IM Intramuscular September 18, 2016 Administered UYJP-DrpT-AHW 0.5mL (Pediarix) IM Intramuscular July 16, 2017 Administered SRSH-HghL-EHA 0.5mL (Pediarix) IM Intramuscular September 18, 2016 [...] Education Language: Question Answer Notes Languages spoken: Turkmen Caodaism: Question Answer Notes Caodaism 08 Restorationism Sexual Hx: Question Answer Notes Had sex [...] REASON FOR REFERRAL No Information VITAL SIGNS No information MEDICATIONS Medication SIG (Take, Route, Frequency, Duration) [...] 1 tablet Orally Once a day on M,W, Active Zolpidem Tartrate 5 MG 1 tablet at bedtime Orally/1 23974212 Once a day as needed Active May [...] Information RESULTS No Results REASON FOR VISIT refill-tramadol MEDICAL (GENERAL) HISTORY Type Description Date Medical [...] stage 1 and DSS Stage lllA, IgG [place]. 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 Medical History [place] Medical History Hx DVT 07/07/15: Right IJ/SC line associa kisha - tx x 3 months Surgical History Gallbladder removal 03/2008 Surgical History D&C/hysteroscopy 2011 Surgical History basal cell chin/face Surgical History endoscopy and colonoscpy neg 2010 Surgical History melanoma excision, right side of neck-cl avicle area 2009 Surgical History Bone Marrow Transplant--[facility] Surgical History Bone Marrow biopsy 06/18 Surgical History colonoscopy at age 50 Surgical History Port Placed 2018 Hospitalization History side effect of zometa 07/2014 Goals Section No Information Health Concerns No Information MEDICAL EQUIPMENT No Information MENTAL STATUS No Information FUNCTIONAL STATUS No Information ASSESSMENTS Encounter Date Diagnosis Assessment Notes Treatment Notes Treatm ent Clinical Notes Jan, Osteoarthritis of both knees , unspecified osteoarthritis type (ICD- 10 - M17.0) PLAN OF TREATMENT Medication Medication Name Sig Start Date Stop Date Tramadol HCl 50 MG 1.5 tabs Orally every 6 hour s as needed for pain/MMD#6 for 30 Days Triamcinolone Acetonide 0.1 % 1 application Externally Twice a day as needed for itching for 14 days Jan, Doxycycline Hyclate 100 MG 1 capsule Orally Twice a day for 10 day(s) Jan, Next Appt Details Provider Name:Celi Campo, 2020-09-29 10:3 0:00 AM, [address] [place], [address], Provider Name:Nohemy Woodall, 07:45:00 AM, [address] [facility], [facility] [facility], [place], [address], Insurance Providers Payer Name Payer Address Payer Phone Insured Name Patient Relati onship to Insured Coverage Start Date Coverage End Date [phone] [facility] [place] [address] [place]
--- OUTSIDE RECORDS SUMMARY | 2020-04-07 10:19 | CCD ---
Author Author [facility] Organization [facility] Address Unknown Phone Unavailable Care Team Providers Care Rice Farmworker Name Role Phone LIMON, H ABIMBOLA COMMERCIAL LEASING AGENT Unavailable Unavailable LIMON, H ABIMBOLA COMMERCIAL LEASING AGENT Unavailable Unavailable LIMON, H ABIMBOLA COMMERCIAL LEASING AGENT Unavailable Unavailable LIMON, H ABIMBOLA COMMERCIAL LEASING AGENT Unavailable Unavailable LIMON, H ABIMBOLA COMMERCIAL LEASING AGENT Unavailable Unavailable LIMON, H ABIMBOLA COMMERCIAL LEASING AGENT Unavailable Unavailable LIMON, H ABIMBOLA COMMERCIAL LEASING AGENT Unavailable Unavailable LIMON, H ABIMBOLA COMMERCIAL LEASING AGENT Unavailable Unavailable LIMON, H ABIMBOLA COMMERCIAL LEASING AGENT Unavailable Unavailable LIMON, H ABIMBOLA COMMERCIAL LEASING AGENT Unavailable Unavailable LIMON, H ABIMBOLA COMMERCIAL LEASING AGENT Unavailable Unavailable LIMON, H ABIMBOLA COMMERCIAL LEASING AGENT Unavailable Unavailable LIMON, H ABIMBOLA COMMERCIAL LEASING AGENT Unavailable Unavailable LIMON, H ABIMBOLA COMMERCIAL LEASING AGENT Unavailable Unavailable LIMON, H ABIMBOLA COMMERCIAL LEASING AGENT Unavailable Unavailable LIMON, H ABIMBOLA COMMERCIAL LEASING AGENT Unavailable Unavailable LIMON, H ABIMBOLA COMMERCIAL LEASING AGENT Unavailable Unavailable LIMON, H ABIMBOLA COMMERCIAL LEASING AGENT Unavailable Unavailable LIMON, H ABIMBOLA COMMERCIAL LEASING AGENT Unavailable Unavailable LIMON, H ABIMBOLA COMMERCIAL LEASING AGENT Unavailable Unavailable LIMON, H ABIMBOLA COMMERCIAL LEASING AGENT Unavailable Unavailable LIMON, H ABIMBOLA COMMERCIAL LEASING AGENT Unavailable Unavailable LIMON, H ABIMBOLA COMMERCIAL LEASING AGENT Unavailable Unavailable LIMON, H ABIMBOLA COMMERCIAL LEASING AGENT Unavailable Unavailable LIMON, H ABIMBOLA COMMERCIAL LEASING AGENT Unavailable Unavailable LIMON, H ABIMBOLA COMMERCIAL LEASING AGENT Unavailable Unavailable LIMON, H ABIMBOLA COMMERCIAL LEASING AGENT Unavailable Unavailable LIMON, H ABIMBOLA COMMERCIAL LEASING AGENT Unavailable Unavailable LIMON, H ABIMBOLA COMMERCIAL LEASING AGENT Unavailable Unavailable LIMON, H ABIMBOLA COMMERCIAL LEASING AGENT Unavailable Unavailable LIMON, H ABIMBOLA COMMERCIAL LEASING AGENT Unavailable Unavailable LIMON, H ABIMBOLA COMMERCIAL LEASING AGENT Unavailable Unavailable LIMON, H ABIMBOLA COMMERCIAL LEASING AGENT Unavailable Unavailable LIMON, H ABIMBOLA COMMERCIAL LEASING AGENT Unavailable Unavailable LIMON, H ABIMBOLA COMMERCIAL LEASING AGENT Unavailable Unavailable LIMON, H ABIMBOLA COMMERCIAL LEASING AGENT Unavailable Unavailable LIMON, H ABIMBOLA COMMERCIAL LEASING AGENT Unavailable Unavailable LIMON, H ABIMBOLA COMMERCIAL LEASING AGENT Unavailable Unavailable LIMON, H ABIMBOLA COMMERCIAL LEASING AGENT Unavailable Unavailable LIMON, H ABIMBOLA COMMERCIAL LEASING AGENT Unavailable Unavailable LIMON, H ABIMBOLA COMMERCIAL LEASING AGENT Unavailable Unavailable LMION, H ABIMBOLA COMMERCIAL LEASING AGENT Unavailable Unavailable LIMON, H ABIMBOLA COMMERCIAL LEASING AGENT Unavailable Unavailable LIMON, H ABIMBOLA COMMERCIAL LEASING AGENT Unavailable Unavailable LIMON, H ABIMBOLA COMMERCIAL LEASING AGENT Unavailable Unavailable LIMON, H ABIMBOLA COMMERCIAL LEASING AGENT Unavailable Unavailable LIMON, H ABIMBOLA COMMERCIAL LEASING AGENT Unavailable Unavailable LIMON, H ABIMBOLA COMMERCIAL LEASING AGENT Unavailable Unavailable LIMON, H ABIMBOLA COMMERCIAL LEASING AGENT Unavailable Unavailable LIMON, H ABIMBOLA COMMERCIAL LEASING AGENT Unavailable Unavailable LIMON, H ABIMBOLA COMMERCIAL LEASING AGENT Unavailable Unavailable LIMON, H ABIMBOLA COMMERCIAL LEASING AGENT Unavailable Unavailable LIMON, H ABIMBOLA COMMERCIAL LEASING AGENT Unavailable Unavailable LIMON, H ABIMBOLA COMMERCIAL LEASING AGENT Unavailable Unavailable LIMON, H ABIMBOLA COMMERCIAL LEASING AGENT Unavailable Unavailable Re-disclosure Warning The records that you are about to access may contain information from federally-assisted alcohol or drug abuse programs. If such information is present, then the following federally mandated warning applies: This information has been disclosed to you from records protected by federal confidentiality rules (42 CFR part 2). The federal rules prohibit you from making any further disclosure of this information unless further disclosure is expressly permitted by the written consent of the person to whom it pertains or as otherwise permitted by 42 CFR part 2. A general authorization for the release of medical or other information is NOT sufficient for this purpose. The Federal rules restrict any use of the information to criminally investigate or prosecute any alcohol or drug abuse patient.The records that you are about to access may contain highly sensitive health information, the redisclosure of which is protected by Article 27-F of the [facility] Public Health law. If you continue you may have access to information: Regarding HIV / AIDS; Provided by facilities licensed or operated by the [facility] Office of Mental Health; or Provided by the [facility] Office for People With Developmental Disabilities. If such information is present, then the following [facility] mandated warning applies: This information has been disclosed to you from confidential records which are protected by state law. State law prohibits you from making any further disclosure of this information without the specific written consent of the person to whom it pertains, or as otherwise permitted by law. Any unauthorized further disclosure in violation of state law may result in a fine or alf sentence or both. A general authorization for the release of medical or other information is NOT sufficient authorization for further disc losure. Family History Family Member Name Family Member Gender Family Member Status Date o f Status Description Data Source(s) Unknown Unknown Problem MEDENT ([facility]) mother,mgm Encounters Encounter Providers Location Date Indications Data Source(s ) Unknown [address] [facility] [address] 02/10/2020 12:00:00 AM EST eCW1 ([facility]) Unknown [address] [facility] [address] 01/24/2020 12:00:00 AM EST eCW1 ([facility]) Unknown [address] [facility] [address] 01/24/2020 12:00:00 AM EST eCW1 ([facility]) Outpatient [address] [facility] [address] 01/19/2020 12:00:00 AM EST eCW1 ([facility]) [facility] Dermatology [address] [place] [address] 12/27/2019 12:00:00 AM EDT eCW1 ([facility]) Outpatient [address] [facility] [address] 12/08/2019 12:00:00 AM EDT eCW1 ([facility]) Unknown [address] [facility] [id number] 12/08/2019 12:00:00 AM EDT eCW1 ([facility]) [facility] [address] [place] [address] 10/25/2019 12:00:00 AM EDT eCW1 ([facility]) Outpatient [address] [facility] [address] 09/24/2019 12:00:00 AM EDT eCW1 ([facility]) [facility] [address] [facility] [address] 08/20/2019 12:00:00 AM EDT eCW1 ([facility]) [address] [address] 08/13/2019 12:00:00 AM EDT eCW1 ([facility]) [address] [address] 07/29/2019 12:00:00 AM EDT eCW1 ([facility]) [address] [address] 05/24/2019 12:00:00 AM EDT eCW1 ([facility]) [address] [address] 04/12/2019 12:00:00 AM EST eCW1 ([facility]) Recurring Patient Referrer: ABIMBOLA LIMON NP 03/26/2019 10:40: 45 AM EST [facility] [address] [address] 02/22/2019 12:00:00 AM EST eCW1 ([facility]) Medications Medication Brand Name Start Date Product Form Dose Route Admi nistrative Instructions Pharmacy Instructions Status Indications Reaction Description Data Source(s) doxycycline hyclate 100 MG Oral Capsule Doxycycline Hy clate 100 MG Doxycycline Hyclate 100 MG 01/24/2020 12:00:00 AM EST 1.0 {capsule} active Doxycycline Hyclate 100 MG eCW1 ([facility]) doxycycline hyclate 100 MG Oral Capsule Doxycycline Hy clate 100 MG Doxycycline Hyclate 100 MG 01/24/2020 12:00:00 AM EST 1.0 {capsule} active Doxycycline Hyclate 100 MG eCW1 ([facility]) doxycycline hyclate 100 MG Oral Capsule Doxycycline Hy clate 100 MG Doxycycline Hyclate 100 MG 01/24/2020 12:00:00 AM EST 1.0 {capsule} active Doxycycline Hyclate 100 MG eCW1 ([facility]) doxycycline hyclate 100 MG Oral Capsule Doxycycline Hy clate 100 MG Doxycycline Hyclate 100 MG 01/24/2020 12:00:00 AM EST 1.0 {capsule} active Doxycycline Hyclate 100 MG eCW1 ([facility]) doxycycline hyclate 100 MG Oral Capsule Doxycycline Hy clate 100 MG Doxycycline Hyclate 100 MG 01/24/2020 12:00:00 AM EST 1.0 {capsule} active Doxycycline Hyclate 100 MG eCW1 ([facility]) Triamcinolone Acetonide 1 MG/ML Topical Cream Triamcin olone Acetonide 0.1 % Triamcinolone Acetonide 0.1 % 01/19/2020 12:00:00 AM EST 1.0 {appli cation} active Triamcinolone Acetonide 0 .1 % eCW1 ([facility]) Triamcinolone Acetonide 1 MG/ML Topical Cream Triamcin olone Acetonide 0.1 % Triamcinolone Acetonide 0.1 % 01/19/2020 12:00:00 AM EST 1.0 {appli cation} active Triamcinolone Acetonide 0 .1 % eCW1 ([facility]) Triamcinolone Acetonide 1 MG/ML Topical Cream Triamcin olone Acetonide 0.1 % Triamcinolone Acetonide 0.1 % 01/19/2020 12:00:00 AM EST 1.0 {appli cation} active Triamcinolone Acetonide 0 .1 % eCW1 ([facility]) Triamcinolone Acetonide 1 MG/ML Topical Cream Triamcin olone Acetonide 0.1 % Triamcinolone Acetonide 0.1 % 01/19/2020 12:00:00 AM EST 1.0 {appli cation} active Triamcinolone Acetonide 0 .1 % eCW1 ([facility]) Triamcinolone Acetonide 1 MG/ML Topical Cream Triamcin olone Acetonide 0.1 % Triamcinolone Acetonide 0.1 % 01/19/2020 12:00:00 AM EST 1.0 {appli cation} active Triamcinolone Acetonide 0 .1 % eCW1 ([facility]) Robaxin 500 MG UNK 12/08/2019 12:00:00 AM EDT 2.0 {tablets} active Robaxin 500 MG eCW1 ([facility]) Robaxin 500 MG UNK 12/08/2019 12:00:00 AM EDT 2.0 {tablets} active Robaxin 500 MG eCW1 ([facility]) Diclofenac Sodium 0.01 MG/MG Topical Gel [Voltaren] Voltaren 1 % Voltaren 1 % 12/08/2019 12:00:00 AM EDT active Voltaren 1 % eCW1 ([facility]) Diclofenac Sodium 0.01 MG/MG Topical Gel [Voltaren] Voltaren 1 % Voltaren 1 % 12/08/2019 12:00:00 AM EDT active Voltaren 1 % eCW1 ([facility]) Robaxin 500 MG UNK 12/08/2019 12:00:00 AM EDT 2.0 {tablets} active Robaxin 500 MG eCW1 ([facility]) Robaxin 500 MG UNK 12/08/2019 12:00:00 AM EDT 2.0 {tablets} active Robaxin 500 MG eCW1 ([facility]) Robaxin 500 MG UNK 12/08/2019 12:00:00 AM EDT 2.0 {tablets} active Robaxin 500 MG eCW1 ([facility]) Robaxin 500 MG UNK 12/08/2019 12:00:00 AM EDT 2.0 {tablets} active Robaxin 500 MG eCW1 ([facility]) Diclofenac Sodium 0.01 MG/MG Topical Gel [Voltaren] Voltaren 1 % Voltaren 1 % 12/08/2019 12:00:00 AM EDT active Voltaren 1 % eCW1 ([facility]) Diclofenac Sodium 0.01 MG/MG Topical Gel [Voltaren] Voltaren 1 % Voltaren 1 % 12/08/2019 12:00:00 AM EDT active Voltaren 1 % eCW1 ([facility]) Diclofenac Sodium 0.01 MG/MG Topical Gel [Voltaren] Voltaren 1 % Voltaren 1 % 12/08/2019 12:00:00 AM EDT active Voltaren 1 % eCW1 ([facility]) Diclofenac Sodium 0.01 MG/MG Topical Gel [Voltaren] Voltaren 1 % Voltaren 1 % 12/08/2019 12:00:00 AM EDT active Voltaren 1 % eCW1 ([facility]) Diclofenac Sodium 0.01 MG/MG Topical Gel [Voltaren] Voltaren 1 % Voltaren 1 % 12/08/2019 12:00:00 AM EDT active Voltaren 1 % eCW1 ([facility]) Robaxin 500 MG UNK 12/08/2019 12:00:00 AM EDT 2.0 {tablets} active Robaxin 500 MG eCW1 ([facility]) Famotidine 40 MG Oral Tablet Famotidine 40 MG 09/24/2019 12:00:00 A M EDT 1.0 {tablet_at_bedtime} active Famotidine 4 0 MG eCW1 ([facility]) Famotidine 40 MG Oral Tablet Famotidine 40 MG 09/24/2019 12:00:00 A M EDT 1.0 {tablet_at_bedtime} active Famotidine 4 0 MG eCW1 ([facility]) Famotidine 40 MG Oral Tablet Famotidine 40 MG 09/24/2019 12:00:00 A M EDT 1.0 {tablet_at_bedtime} active Famotidine 4 0 MG eCW1 ([facility]) Famotidine 40 MG Oral Tablet Famotidine 40 MG 09/24/2019 12:00:00 A M EDT 1.0 {tablet_at_bedtime} active Famotidine 4 0 MG eCW1 ([facility]) Famotidine 40 MG Oral Tablet Famotidine 40 MG 09/24/2019 12:00:00 A M EDT 1.0 {tablet_at_bedtime} active Famotidine 4 0 MG eCW1 ([facility]) Famotidine 40 MG Oral Tablet Famotidine 40 MG 09/24/2019 12:00:00 A M EDT 1.0 {tablet_at_bedtime} active Famotidine 4 0 MG eCW1 ([facility]) Famotidine 40 MG Oral Tablet Famotidine 40 MG 09/24/2019 12:00:00 A M EDT 1.0 {tablet_at_bedtime} active Famotidine 4 0 MG eCW1 ([facility]) Insurance Providers Payer name Policy type / Coverage type Policy ID Covered constitution party ID Covered constitution party's relationship to pace Policy Pace Plan Information BCBS ANTHEM 834/332 [id number] HU2 [id number] SELF PAY ONLY [id number] SP [id number] [place] P[place] 302/307 [id number] HU2 [id number] MVP Healthcare F [id number] SELF 800 [id number] EXCELLUS BCBS B [id number] P UCR [id number] ANSI-Commercial [id number] ANSI-Commercial [id number] ANSI-Commercial [id number] ANSI-Commercial [id number] ANSI-Commercial [id number] ANSI-Commercial [id number] ANSI-Commercial [id number] ANSI-Commercial [id number] ANSI-Commercial [id number] ANSI-Commercial [id number] ANSI-Commercial [id number] ANSI-Commercial [id number] BCBS [facility]M [id number] ANSI-Commercial [id number] ANSI-Commercial [id number] ANSI-Commercial [id number] ANSI-Commercial [id number] [place] PPO 302/307 [id number] SP [id number] BLUE CARD C [id number] Spouse [id number] [facility] [id number] SP [id number] [place] PPO 302/307 [id number] BCBS [facility]THEM [id number] HU2 [id number] EXCELLUS BCBS B [id number] O UCR [id number] [place] PPO 302/307 [id number] [facility] C[facility] O [id number] S [id number] MVP Commercial [id number] Family Dependent [id number] P HEALTH CARE O [id number] S [id number] [facility] C[facility] [id number] SP [id number] [facility] C[facility] [id number] SP [id number] MVP H [id number] Self [id number] EXCELLUS H [id number] Spouse [id number] [place] PPO 302/307 [id number] HU2 [id number] MVP Healthcare F [id number] SPOUSE [id number] P HEALTH CARE [id number] SP [id number] EXCELLUS BCBS B [id number] P [id number] [id number] BCBS/Excellus Commercial Family Dependent [facility] PHY [id number] SP [id number] Problems, Conditions, and Diagnoses Code Display Name Description Problem Type Effective Dates Data Source(s) Z85.820 [id number] History of melanoma Problem 01/19/2020 12:00 :00 AM EST eCW1 ([facility]) Z85.828 [id number] History of basal cell carcinoma Problem 01/19/2020 12:00:00 AM EST eCW1 ([facility]) M17.0 [id number] Osteoarthritis of barrett th knees, unspecified osteoarthritis type Problem 09/24/2019 12:00:00 AM EDT eCW1 ([facility]) Results ID Date Data Source [id number] 02/09/2020 12:00:00 AM EST [facility] Name Value Range Interpretation Code Description Data Denisa rce(s) Supporting Document(s) 2019-nCoV RNA XXX CLIF+probe-Imp [facility] This lab was ordered by [facility] and reported by [facility]. ID Date Data Source WOUND CULTURE 01/19/2020 12:00:00 AM EST eCW1 ([facility]) Name Value Range Interpretation Code Description Data Denisa rce(s) Supporting Document(s) FULL REPORT IN LAB NOTES (eCW and [facility]). WOUND CULTURE eCW1 ([facility]) ID Date Data Source [id number] 10/18/2019 09:05:00 AM EDT [facility] Name Value Range Interpretation Code Description Data Denisa rce(s) Supporting Document(s) Protein,Total,Urine 43.1 mg/dL Not Estab. [facility] Albumin, U 23.3 % [facility] Kznkx-2-Rtygpdxp, U 4.7 % [facility] Dtzhi-2-Gwfuggdy, U 9.5 % [facility] Beta Globulin, U 28.7 % [facility] Gamma Globulin, U 33.8 % [facility] M-Joshua, % 29.3 % Not Observed Above high normal [facility] The urine protein electrophoresis patter n reflects the presence ofintensely stained band(s) in the beta-gamma region which may representmonoclonal protein. The UPE cannot differentiate intact monoclonalimmunoglobulin from free light chain (Bence-Anthony protein). Ifindicated, a serum and urine immunofixation would further define thisobservation. Please note: [facility] Protein electrophoresis scan will follow via computer, mail, orcourier delivery. PDF . [facility] ID Date Data Source [id number] 10/14/2019 05:05:00 PM EDT [facility] Name Value Range Interpretation Code Description Data Denisa rce(s) Supporting Document(s) Free [place] Lt Chains,S 412.7 mg/L 3.3-19.4 Above high normal [facility] Free Lambda Lt Chains,S 5.7-26.3 Below low normal [facility] [place]/Lambda Ratio,S [facility] Unable to calculate result since non-num jorge result obtained forcomponent test. Procedure Social History Code Duration Value Status Description Data Source(s ) Smoking 01/19/2020 12:00:00 AM EST Never Smoker completed Never S moker eCW1 ([facility]) Smoking 01/19/2020 12:00:00 AM EST Never Smoker completed Never S moker eCW1 ([facility]) Smoking 01/19/2020 12:00:00 AM EST Never Smoker completed Never S moker eCW1 ([facility]) Smoking 01/19/2020 12:00:00 AM EST Never Smoker completed Never S moker eCW1 ([facility]) Smoking 01/19/2020 12:00:00 AM EST Never Smoker completed Never S moker eCW1 ([facility]) Smoking 12/08/2019 12:00:00 AM EDT Never Smoker completed Never S moker eCW1 ([facility]) Smoking 12/08/2019 12:00:00 AM EDT Never Smoker completed Never S moker eCW1 ([facility]) Vital Signs ID Date Data Source UNK Name Value Range Interpretation Code Description Data Source(s) Diastolic blood pressure 76 mm[Hg] 76 mm[Hg] eCW1 ([facility]) Systolic blood pressure 142 mm[Hg] 142 mm[Hg] e CW1 ([facility]) Body mass index (BMI) [Ratio] 46.64 kg/m2 46.64 kg/m2 W1 ([facility]) Body height 66 [in_i] 66 [in_i] eCW1 ([facility]) Body weight 289 [lb_av] 289 [lb_av] eCW1 ([facility]) Diastolic blood pressure 80 mm[Hg] 80 mm[Hg] eCW1 ([facility]) Systolic blood pressure 140 mm[Hg] 140 mm[Hg] e CW1 ([facility]) Body temperature 97 [degF] 97 [degF] eCW1 ([facility]) Respiratory rate 20 /min 20 /min eCW1 ([facility]) Heart rate 90 /min 90 /min eCW1 ([facility]) Body mass index (BMI) [Ratio] 46.96 kg/m2 46.96 kg/m2 W1 ([facility]) Body height 66 [in_i] 66 [in_i] eCW1 ([facility]) Body weight 291 [lb_av] 291 [lb_av] eCW1 ([facility]) Diastolic blood pressure 80 mm[Hg] 80 mm[Hg] eCW1 ([facility]) Systolic blood pressure 120 mm[Hg] 120 mm[Hg] e CW1 ([facility]) Body temperature 98.5 [degF] 98.5 [degF] eCW1 ( [facility]) Respiratory rate 18 /min 18 /min eCW1 ([facility]) Heart rate 71 /min 71 /min eCW1 ([facility]) Body mass index (BMI) [Ratio] 47.06 kg/m2 47.06 kg/m2 eCW1 ([facility]) Body height 66 [in_i] 66 [in_i] eCW1 ([facility]) Body weight 291.6 [lb_av] 291.6 [lb_av] eCW1 [facility] Patient Treatment Plan of Care Planned Activity Planned Date Details Description Data Source (s) doxycycline hyclate 100 MG Oral Capsule 01/24/2020 12:00:00 AM EST eCW1 ([facility]) doxycycline hyclate 100 MG Oral Capsule 01/24/2020 12:00:00 AM EST eCW1 ([facility]) doxycycline hyclate 100 MG Oral Capsule 01/24/2020 12:00:00 AM EST eCW1 ([facility]) doxycycline hyclate 100 MG Oral Capsule 01/24/2020 12:00:00 AM EST eCW1 ([facility]) doxycycline hyclate 100 MG Oral Capsule 01/24/2020 12:00:00 AM EST eCW1 ([facility]) Triamcinolone Acetonide 1 MG/ML Topical Cream 01/19/2020 12:00:00 A M EST eCW1 ([facility]) Triamcinolone Acetonide 1 MG/ML Topical Cream 01/19/2020 12:00:00 A M EST eCW1 ([facility]) Triamcinolone Acetonide 1 MG/ML Topical Cream 01/19/2020 12:00:00 A M EST eCW1 ([facility]) Triamcinolone Acetonide 1 MG/ML Topical Cream 01/19/2020 12:00:00 A M EST eCW1 ([facility]) Triamcinolone Acetonide 1 MG/ML Topical Cream 01/19/2020 12:00:00 A M EST eCW1 ([facility]) Robaxin 500 MG 12/08/2019 12:00:00 AM EDT eCW1 ([facility]) Diclofenac Sodium 0.01 MG/MG Topical Gel [Voltaren] 12/08/19 12:00:00 AM EDT eCW1 ([facility]) Robaxin 500 MG 12/08/2019 12:00:00 AM EDT eCW1 ([facility]) Diclofenac Sodium 0.01 MG/MG Topical Gel [Voltaren] 12/08/19 12:00:00 AM EDT eCW1 ([facility])
--- OUTSIDE RECORDS SUMMARY | 2020-04-07 10:19 | CCD ---
Author Author [facility] Organization [facility] Address Unknown Phone Unavailable Care Team Providers Care Marine Cargo Inspector Name Role Phone Nohemy Woodall Unavailable PROBLEMS Type Condition ICD9-CM Code [id number] Code Onset Dates Condition S tatus SNOMED Code Notes Problem Obstructive sleep apnea G47.33 Active 30185212 Problem Vitamin D deficiency E55.9 Active 62270829 Problem Other and unspecified hyperlipidemia E78.5 Act fuad 35485433 Problem History of basal cell cancer Z85.828 Active 428 104669 Problem Dysmetabolic syndrome X E88.81 Active 04930507 7 Problem Xerosis cutis L85.3 Active 41393771 Problem History of melanoma in situ Z87.898 Active 1251 151633918 Problem Post-menopausal bleeding N95.0 Active 8377971 9 Problem Insomnia due to medical condition G47.01 Active 965826056 Problem 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 20 Active 043434628 Problem Other chronic pain G89.29 Active 94775509 Problem Gastro-esophageal reflux disease without esophagitis K21.9 Active 615421592 Problem Vaginal spotting N92.0 Active 450234577 Problem Moderate mixed hyperlipidemia not requiring statin therapy E78.2 Active 121976988 Problem Melanocytic nevi of trunk D22.5 Active 032038 002 Problem History of basal cell carcinoma Z85.828 Active 878500731 Problem Asthma exacerbation J45.901 Active 173827248 Problem History of melanoma Z85.820 Active 588000803 Problem Localized osteoarthritis of both knees M17.0 A ctive 816388340 Problem Osteoarthritis M19.90 Active 500266104 Problem Seborrheic keratoses L82.1 Active 033032991 Problem Isabel angioma I78.1 Active 7882020 Problem Melanocytic nevi of face D22.30 Active 6033850 04 Problem Osteoarthritis of both knees, unspecified osteoarthritis t ype M17.0 Active 766217468492551 ALLERGIES Allergen (clinical drug ingredient) Drug/Non Drug Allergy do cumented on EMR Reaction Allergy Type Onset Date Status escitalopram Lexapro Nausea/Vomiting, muscle cramps Drug Allergy Active amoxicillin / clavulanate Augmentin([facility] Code:[address]-91) yeast flare with perineal blisters Drug Allergy Active Latex Localized skin rash Non Drug Allergy Active ENCOUNTERS from 1960 to 2020-01-24 Encounter Location Date Provider Diagnosis [address] [address] Jan, Nohemy Woodall IMMUNIZATIONS Vaccine Route Administration Date Status Meningococcal [...] 13) IM Intramuscular September 18, 2016 Administered AXXL-UaiB-MCV 0.5mL (Pediarix) IM Intramuscular July 16, 2017 Administered GHFL-MniO-VEK 0.5mL (Pediarix) IM Intramuscular September 18, 2016 [...] Education Language: Question Answer Notes Languages spoken: Kazakh Methodist: Question Answer Notes [facility] 08 Voodoo Sexual Hx: Question Answer Notes Had sex [...] 5 MG 1 tablet at bedtime Orally/1 75289065 Once a day as needed Active Sulfamethoxazole-Trimethoprim 800-160 MG 1 tablet Orally Once a day on M,W,F Active Singulair 10 MG 1 tablet Orally Once a day for 90 day(s) Active Dexamethasone 4 MG 5 tabs on day of chemo then 5 tabs the day after Orally per directions qweek for 30 days Oct, Act fuad Aspir-81 Active PROCEDURES No Information RESULTS No Results REASON FOR VISIT +bacterial culture MEDICAL (GENERAL) HISTORY Type Description Date Medical [...] stage 1 and DSS Stage lllA, IgG Melissa. 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 - [facility] Medical History [place] Medical History Hx DVT 07/07/15: Right IJ/SC line associa kisha - tx x 3 months Surgical History Gallbladder removal 03/2008 Surgical History D&C/hysteroscopy 2011 Surgical History basal cell chin/face Surgical History endoscopy and colonoscpy neg 2010 Surgical History melanoma excision, right side of neck-cl avicle area 2009 Surgical History Bone Marrow Transplant--[place] Surgical History Bone Marrow biopsy 06/18 Surgical History colonoscopy at age 50 Surgical History Port Placed 2018 Hospitalization History side effect of zometa 07/2014 Goals Section No Information Health Concerns No Information MEDICAL EQUIPMENT No Information MENTAL STATUS No Information FUNCTIONAL STATUS No Information ASSESSMENTS No Information PLAN OF TREATMENT Medication Medication Name Sig Start Date Stop Date Doxycycline Hyclate 100 MG 1 capsule Orally Twice a day for 10 day(s) Jan, Triamcinolone Acetonide 0.1 % 1 application Externally Twice a day as needed for itching for 14 days Jan, Next Appt Details Provider Name:Celi Campo, 2020-09-29 10:3 0:00 AM, [address] [place], [address], Provider Name:Nohemy Woodall, 07:45:00 AM, [address] [facility], [address] Floor, [place], [address], Insurance Providers Payer Name Payer Address Payer Phone Insured Name Patient Relati onship to Insured Coverage Start Date Coverage End Date [facility] [place] [id number] [facility] [id number] Usama Davenport
--- OUTSIDE RECORDS SUMMARY | 2020-04-07 10:19 | CCD ---
Author Author [facility] Organization [facility] Address Unknown Phone Unavailable Care Team Providers Care Corrective Therapy Aide Name Role Phone Nohemy Woodall Unavailable PROBLEMS Type Condition ICD9-CM Code [id number] Code Onset Dates Condition S tatus SNOMED Code Notes Problem Obstructive sleep apnea G47.33 Active 57004621 Problem Vitamin D deficiency E55.9 Active 03563414 Problem Other and unspecified hyperlipidemia E78.5 Act fuad 41325562 Problem History of basal cell cancer Z85.828 Active 428 315042 Problem Dysmetabolic syndrome X E88.81 Active 99490599 7 Problem Xerosis cutis L85.3 Active 73642411 Problem History of melanoma in situ Z87.898 Active 1251 746534734 Problem Post-menopausal bleeding N95.0 Active 3382893 9 Problem Insomnia due to medical condition G47.01 Active 410228541 Problem 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 20 Active 612279049 Problem Other chronic pain G89.29 Active 50946995 Problem Gastro-esophageal reflux disease without esophagitis K21.9 Active 934185585 Problem Vaginal spotting N92.0 Active 251919932 Problem Moderate mixed hyperlipidemia not requiring statin therapy E78.2 Active 717249805 Problem Melanocytic nevi of trunk D22.5 Active 869312 002 Problem History of basal cell carcinoma Z85.828 Active 453450135 Problem Asthma exacerbation J45.901 Active 606770184 Problem History of melanoma Z85.820 Active 364575545 Problem Localized osteoarthritis of both knees M17.0 A ctive 557620889 Problem Osteoarthritis M19.90 Active 079714982 Problem Seborrheic keratoses L82.1 Active 067713388 Problem Isabel angioma I78.1 Active 8744568 Problem Melanocytic nevi of face D22.30 Active 5737032 04 Problem Osteoarthritis of both knees, unspecified osteoarthritis t ype M17.0 Active 679395337252351 ALLERGIES Allergen (clinical drug ingredient) Drug/Non Drug Allergy do cumented on EMR Reaction Allergy Type Onset Date Status escitalopram Lexapro Nausea/Vomiting, muscle cramps Drug Allergy Active amoxicillin / clavulanate Augmentin([facility] Code:[address]-27) yeast flare with perineal blisters Drug Allergy Active Latex Localized skin rash Non Drug Allergy Active ENCOUNTERS from 1960 to 2020-01-24 Encounter Location Date Provider Diagnosis [facility] Dermatology [address] [address] Jan, 2020 Nohemy Woodall IMMUNIZATIONS Vaccine Route Administration Date [...] 13) IM Intramuscular September 18, 2016 Administered TFNI-TmtM-IQH 0.5mL (Pediarix) IM Intramuscular July 16, 2017 Administered CKYH-ZctT-JHQ 0.5mL (Pediarix) IM Intramuscular September 18, 2016 [...] Education Language: Question Answer Notes Languages spoken: Polish Islam: Question Answer Notes Islam 08 Anabaptist Sexual Hx: Question Answer Notes Had sex [...] 5 MG 1 tablet at bedtime Orally/1 27337599 Once a day as needed Active Sulfamethoxazole-Trimethoprim [...] Information RESULTS No Results REASON FOR VISIT Biopsy results MEDICAL (GENERAL) HISTORY Type Description Date Medical [...] stage 1 and DSS Stage lllA, IgG Eleva. 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 - [facility] Medical History [place] Medical History Hx DVT 07/07/15: Right IJ/SC line associa kisha - tx x 3 months Surgical History Gallbladder removal 03/2008 Surgical History D&C/hysteroscopy 2011 Surgical History basal cell chin/face Surgical History endoscopy and colonoscpy neg 2010 Surgical History melanoma excision, right side of neck-cl avicle area 2009 Surgical History Bone Marrow Transplant--[place] Surgical History Bone Marrow biopsy 06/18 Surgical [...] Name:Celi Campo, 2020-09-29 10:3 0:00 AM, [address] [place], [address], Provider Name:Nohemy Woodall, 07:45:00 AM, [address] [facility], 1[address] Floor, [place], [address], Insurance Providers Payer Name Payer Address Payer Phone Insured Name Patient Relati onship to Insured Coverage Start Date Coverage End Date [facility]BS [facility] [id number] [facility] [place] [id number] Usama Davenport
--- NOTE | 2020-04-07 10:43 | REP ---
INDICATION: DYSPNEA/COUGH. COMPARISON: Comparison chest x-ray May 05, 2017. TECHNIQUE: Portable upright AP chest radiograph. FINDINGS: The lungs are well inflated and clear. The pleural angles are sharp. There is a left-sided Ozdqjs-O-Zlvi catheter with its tip in place of the expected location of the superior vena cava. Monitoring electrodes are seen. Mildly prominent heart is noted. Pulmonary vasculature is not increased. No infiltrate is seen.. IMPRESSION: Onnjju-R-Wpqm catheter in place. Borderline heart size. No infiltrates seen.. <Electronically signed by Miguel Martinez > 04/07/20 1038
[2020-04-07 10:52] LABS: HEMATOCRIT 28.4 % (36.0-47.0); HEMOGLOBIN 9.2 g/dl (12.0-15.5); MEAN CORPUSCULAR HEMOGLOBIN 33.3 pg (27.0-33.0); MEAN CORPUSCULAR HGB CONC 32.4 g/dl (32.0-36.5); MEAN CORPUSCULAR VOLUME 102.9 fl (80.0-96.0); PLATELET COUNT, AUTOMATED 123 10^3/uL (150-450); RED BLOOD COUNT 2.76 10^6/uL (4.00-5.40); WHITE BLOOD COUNT 5.5 10^3/uL (4.0-10.0)
--- OUTSIDE RECORDS SUMMARY | 2020-04-07 11:33 | CCD ---
Author Author [facility] Organization [facility] Address Unknown Phone Unavailable Care Team Providers Care Technical Recruiter Name Role Phone LIMON, H ABIMBOLA INDUST[employer]MIC[employer] SUPERVISOR Unavailable Unavailable LIMON, H ABIMBOLA [employer]UST[employer]MIC[employer] SUPERVISOR Unavailable Unavailable LIMON, H ABIMBOLA [employer]USTRIAL [employer]MIC[employer] SUPERVISOR Unavailable Unavailable LIMON, H ABIMBOLA INDUST[employer]AL [employer]MIC[employer] SUPERVISOR Unavailable Unavailable LIMON, H ABIMBOLA INDUSTRIAL CHEMICALS SUPERVISOR Unavailable Unavailable LIMON, H ABIMBOLA INDUSTRIAL CHEMICALS SUPERVISOR Unavailable Unavailable LIMON, H ABIMBOLA INDUSTRIAL CHEMICALS SUPERVISOR Unavailable Unavailable LIMON, H ABIMBOLA INDUSTRIAL CHEMICALS SUPERVISOR Unavailable Unavailable LIMON, H ABIMBOLA INDUSTRIAL CHEMICALS SUPERVISOR Unavailable Unavailable LIMON, H ABIMBOLA INDUSTRIAL CHEMICALS SUPERVISOR Unavailable Unavailable LIMON, H ABIMBOLA INDUSTRIAL CHEMICALS SUPERVISOR Unavailable Unavailable LIMON, H ABIMBOLA INDUSTRIAL CHEMICALS SUPERVISOR Unavailable Unavailable LIMON, H ABIMBOLA INDUSTRIAL CHEMICALS SUPERVISOR Unavailable Unavailable LIMON, H ABIMBOLA INDUSTRIAL CHEMICALS SUPERVISOR Unavailable Unavailable LIMON, H ABIMBOLA INDUSTRIAL CHEMICALS SUPERVISOR Unavailable Unavailable LIMON, H ABIMBOLA IND[employer]RIAL CHEMICALS SUPERVISOR Unavailable Unavailable LIMON, H ABIMBOLA INDUSTRIAL CHEMICALS SUPERVISOR Unavailable Unavailable LIMON, H ABIMBOLA INDUSTRIAL CHEMICALS SUPERVISOR Unavailable Unavailable LIMON, H ABIMBOLA INDUSTRIAL CHEMICALS SUPERVISOR Unavailable Unavailable LIMON, H ABIMBOLA INDUSTRIAL CHEMICALS SUPERVISOR Unavailable Unavailable LIMON, H ABIMBOLA INDUSTRIAL CHEMICALS SUPERVISOR Unavailable Unavailable LIMON, H ABIMBOLA INDUSTRIAL CHEMICALS SUPERVISOR Unavailable Unavailable LIMON, H ABIMBOLA INDUSTRIAL CHEMICALS SUPERVISOR Unavailable Unavailable LIMON, H ABIMBOLA INDUSTRIAL CHEMICALS SUPERVISOR Unavailable Unavailable LIMON, H ABIMBOLA INDUSTRIAL CHEMICALS SUPERVISOR Unavailable Unavailable LIMON, H ABIMBOLA INDUSTRIAL CHEMICALS SUPERVISOR Unavailable Unavailable LIMON, H ABIMBOLA INDUSTRIAL CHEMICALS SUPERVISOR Unavailable Unavailable LIMON, H ABIMBOLA INDUSTRIAL CHEMICALS SUPERVISOR Unavailable Unavailable LIMON, H ABIMBOLA INDUSTRIAL CHEMICALS SUPERVISOR Unavailable Unavailable LIMON, H ABIMBOLA INDUSTRIAL CHEMICALS SUPERVISOR Unavailable Unavailable LIMON, H ABIMBOLA INDUSTRIAL CHEMICALS SUPERVISOR Unavailable Unavailable LIMON, H ABIMBOLA INDUSTRIAL CHEMICALS SUPERVISOR Unavailable Unavailable LIMON, H ABIMBOLA INDUSTRIAL CHEMICALS SUPERVISOR Unavailable Unavailable LIMON, H ABIMBOLA INDUSTRIAL CHEMICALS SUPERVISOR Unavailable Unavailable LIMON, H ABIMBOLA INDUSTRIAL CHEMICALS SUPERVISOR Unavailable Unavailable LIMON, H ABIMBOLA INDUSTRIAL CHEMICALS SUPERVISOR Unavailable Unavailable LIMON, H ABIMBOLA INDUSTRIAL CHEMICALS SUPERVISOR Unavailable Unavailable LIMNO, H ABIMBOLA INDUSTRIAL CHEMICALS SUPERVISOR Unavailable Unavailable LIMON, H ABIMBOLA INDUSTRIAL CHEMICALS SUPERVISOR Unavailable Unavailable LIMON, H ABIMBOLA INDUSTRIAL CHEMICALS SUPERVISOR Unavailable Unavailable LIMON, H ABIMBOLA INDUSTRIAL CHEMICALS SUPERVISOR Unavailable Unavailable LIMON, H ABIMBOLA INDUSTRIAL CHEMICALS SUPERVISOR Unavailable Unavailable LIMON, H ABIMBOLA INDUSTRIAL CHEMICALS SUPERVISOR Unavailable Unavailable LIMON, H ABIMBOLA INDUSTRIAL CHEMICALS SUPERVISOR Unavailable Unavailable LIMON, H ABIMBOLA INDUSTRIAL CHEMICALS SUPERVISOR Unavailable Unavailable LIMON, H ABIMBOLA INDUSTRIAL CHEMICALS SUPERVISOR Unavailable Unavailable LIMON, H ABIMBOLA INDUSTRIAL CHEMICALS SUPERVISOR Unavailable Unavailable LIMON, H ABIMBOLA INDUSTRIAL CHEMICALS SUPERVISOR Unavailable Unavailable LIMON, H ABIMBOLA INDUSTRIAL CHEMICALS SUPERVISOR Unavailable Unavailable LIMON, H ABIMBOLA INDUSTRIAL CHEMICALS SUPERVISOR Unavailable Unavailable LIMON, H ABIMBOLA INDUSTRIAL CHEMICALS SUPERVISOR Unavailable Unavailable LIMON, H ABIMBOLA INDUSTRIAL CHEMICALS SUPERVISOR Unavailable Unavailable LIMON, H ABIMBOLA INDUSTRIAL CHEMICALS SUPERVISOR Unavailable Unavailable LIMON, H ABIMBOLA INDUSTRIAL CHEMICALS SUPERVISOR Unavailable Unavailable LIMON, H ABIMBOLA INDUST[employer]AL [employer]MICALS SUPERVISOR Unavailable Unavailable Re-disclosure Warning The records that [...] is protected by Article 27-F of the [facility] Public Health law. If you continue you may have access to information: Regarding HIV / AIDS; Provided by facilities licensed or operated by the [facility] Office of Mental Health; or Provided by the [facility] Office for People With Developmental Disabilities. If such information is present, then the following [facility] mandated warning applies: This information has been [...] law may result in a fine or custodial sentence or both. A general authorization for the release of medical or other information is NOT sufficient authorization for further disc losure. Family History Family Member Name Family Member Gender Family Member Status Date o f Status Description Data Source(s) Unknown Unknown Problem MEDENT ([facility]) mother,mgm Encounters Encounter Providers Location Date Indications Data Source(s ) Unknown [address] [facility] [address] 02/10/2020 12:00:00 AM EST eCW1 ([facility]) Unknown [address] [facility] [address] 01/24/2020 12:00:00 AM EST eCW1 ([facility]) Unknown [address] [facility] [address] 01/24/2020 12:00:00 AM EST eCW1 ([facility]) Outpatient [address] [facility] [address] 01/19/2020 12:00:00 AM EST eCW1 ([facility]) [facility] Dermatology [address] [place] [address] 12/27/2019 12:00:00 AM EDT eCW1 ([facility]) Outpatient [address] [facility] [address] 12/08/2019 12:00:00 AM EDT eCW1 ([facility]) Unknown [address] [facility] [address] 12/08/2019 12:00:00 AM EDT eCW1 ([facility]) [facility] Women[facility] [address] [place] [address] 10/25/2019 12:00:00 AM EDT eCW1 ([facility]) Outpatient [address] [facility] [id number] 09/24/2019 12:00:00 AM EDT eCW1 ([facility]) [facility] [place] [address] [facility] [id number] 08/20/2019 12:00:00 AM EDT eCW1 ([facility]) [address] [address] 08/13/2019 12:00:00 AM EDT eCW1 ([facility]) [address] [address] 07/29/2019 12:00:00 AM EDT eCW1 ([facility]) [address] [address] 05/24/2019 12:00:00 AM EDT eCW1 ([facility]) [address] [address] 04/12/2019 12:00:00 AM EST eCW1 ([facility]) Recurring Patient Referrer: ABIMBOLA LIMON NP 03/26/2019 10:40: 45 AM EST [facility] [address] [address] 02/22/2019 12:00:00 AM EST eCW1 ([facility]) Medications Medication Brand Name Start Date Product Form Dose Route Admi nistrative Instructions Pharmacy Instructions Status Indications Reaction Description Data Source(s) doxycycline hyclate 100 MG Oral Capsule Doxycycline Hy clate 100 MG Doxycycline Hyclate 100 MG 01/24/2020 12:00:00 AM EST 1.0 {capsule} active Doxycycline Hyclate 100 MG eCW1 ([facility]) doxycycline hyclate 100 MG Oral Capsule Doxycycline Hy clate 100 MG Doxycycline Hyclate 100 MG 01/24/2020 12:00:00 AM EST 1.0 {capsule} active Doxycycline Hyclate 100 MG eCW1 ([facility]) doxycycline hyclate 100 MG Oral Capsule Doxycycline Hy clate 100 MG Doxycycline Hyclate 100 MG 01/24/2020 12:00:00 AM EST 1.0 {capsule} active Doxycycline Hyclate 100 MG eCW1 ([facility]) doxycycline hyclate 100 MG Oral Capsule Doxycycline Hy clate 100 MG Doxycycline Hyclate 100 MG 01/24/2020 12:00:00 AM EST 1.0 {capsule} active Doxycycline Hyclate 100 MG eCW1 ([facility]) doxycycline hyclate 100 MG Oral Capsule Doxycycline Hy clate 100 MG Doxycycline Hyclate 100 MG 01/24/2020 12:00:00 AM EST 1.0 {capsule} active Doxycycline Hyclate 100 MG eCW1 ([facility]) Triamcinolone Acetonide 1 MG/ML Topical Cream Triamcin olone Acetonide 0.1 % Triamcinolone Acetonide 0.1 % 01/19/2020 12:00:00 AM EST 1.0 {appli cation} active Triamcinolone Acetonide 0 .1 % eCW1 ([facility]) Triamcinolone Acetonide 1 MG/ML Topical Cream Triamcin olone Acetonide 0.1 % Triamcinolone Acetonide 0.1 % 01/19/2020 12:00:00 AM EST 1.0 {appli cation} active Triamcinolone Acetonide 0 .1 % eCW1 ([facility]) Triamcinolone Acetonide 1 MG/ML Topical Cream Triamcin olone Acetonide 0.1 % Triamcinolone Acetonide 0.1 % 01/19/2020 12:00:00 AM EST 1.0 {appli cation} active Triamcinolone Acetonide 0 .1 % eCW1 ([facility]) Triamcinolone Acetonide 1 MG/ML Topical Cream Triamcin olone Acetonide 0.1 % Triamcinolone Acetonide 0.1 % 01/19/2020 12:00:00 AM EST 1.0 {appli cation} active Triamcinolone Acetonide 0 .1 % eCW1 ([facility]) Triamcinolone Acetonide 1 MG/ML Topical Cream Triamcin olone Acetonide 0.1 % Triamcinolone Acetonide 0.1 % 01/19/2020 12:00:00 AM EST 1.0 {appli cation} active Triamcinolone Acetonide 0 .1 % eCW1 ([facility]) Robaxin 500 MG UNK 12/08/2019 12:00:00 AM EDT 2.0 {tablets} active Robaxin 500 MG eCW1 ([facility]) Robaxin 500 MG UNK 12/08/2019 12:00:00 AM EDT 2.0 {tablets} active Robaxin 500 MG eCW1 ([facility]) Diclofenac Sodium 0.01 MG/MG Topical Gel [Voltaren] Voltaren 1 % Voltaren 1 % 12/08/2019 12:00:00 AM EDT active Voltaren 1 % eCW1 ([facility]) Diclofenac Sodium 0.01 MG/MG Topical Gel [Voltaren] Voltaren 1 % Voltaren 1 % 12/08/2019 12:00:00 AM EDT active Voltaren 1 % eCW1 ([facility]) Robaxin 500 MG UNK 12/08/2019 12:00:00 AM EDT 2.0 {tablets} active Robaxin 500 MG eCW1 ([facility]) Robaxin 500 MG UNK 12/08/2019 12:00:00 AM EDT 2.0 {tablets} active Robaxin 500 MG eCW1 ([facility]) Robaxin 500 MG UNK 12/08/2019 12:00:00 AM EDT 2.0 {tablets} active Robaxin 500 MG eCW1 ([facility]) Robaxin 500 MG UNK 12/08/2019 12:00:00 AM EDT 2.0 {tablets} active Robaxin 500 MG eCW1 ([facility]) Diclofenac Sodium 0.01 MG/MG Topical Gel [Voltaren] Voltaren 1 % Voltaren 1 % 12/08/2019 12:00:00 AM EDT active Voltaren 1 % eCW1 ([facility]) Diclofenac Sodium 0.01 MG/MG Topical Gel [Voltaren] Voltaren 1 % Voltaren 1 % 12/08/2019 12:00:00 AM EDT active Voltaren 1 % eCW1 ([facility]) Diclofenac Sodium 0.01 MG/MG Topical Gel [Voltaren] Voltaren 1 % Voltaren 1 % 12/08/2019 12:00:00 AM EDT active Voltaren 1 % eCW1 ([facility]) Diclofenac Sodium 0.01 MG/MG Topical Gel [Voltaren] Voltaren 1 % Voltaren 1 % 12/08/2019 12:00:00 AM EDT active Voltaren 1 % eCW1 ([facility]) Diclofenac Sodium 0.01 MG/MG Topical Gel [Voltaren] Voltaren 1 % Voltaren 1 % 12/08/2019 12:00:00 AM EDT active Voltaren 1 % eCW1 ([facility]) Robaxin 500 MG UNK 12/08/2019 12:00:00 AM EDT 2.0 {tablets} active Robaxin 500 MG eCW1 ([facility]) Famotidine 40 MG Oral Tablet Famotidine 40 MG 09/24/2019 12:00:00 A M EDT 1.0 {tablet_at_bedtime} active Famotidine 4 0 MG eCW1 ([facility]) Famotidine 40 MG Oral Tablet Famotidine 40 MG 09/24/2019 12:00:00 A M EDT 1.0 {tablet_at_bedtime} active Famotidine 4 0 MG eCW1 ([facility]) Famotidine 40 MG Oral Tablet Famotidine 40 MG 09/24/2019 12:00:00 A M EDT 1.0 {tablet_at_bedtime} active Famotidine 4 0 MG eCW1 ([facility]) Famotidine 40 MG Oral Tablet Famotidine 40 MG 09/24/2019 12:00:00 A M EDT 1.0 {tablet_at_bedtime} active Famotidine 4 0 MG eCW1 ([facility]) Famotidine 40 MG Oral Tablet Famotidine 40 MG 09/24/2019 12:00:00 A M EDT 1.0 {tablet_at_bedtime} active Famotidine 4 0 MG eCW1 ([facility]) Famotidine 40 MG Oral Tablet Famotidine 40 MG 09/24/2019 12:00:00 A M EDT 1.0 {tablet_at_bedtime} active Famotidine 4 0 MG eCW1 ([facility]) Famotidine 40 MG Oral Tablet Famotidine 40 MG 09/24/2019 12:00:00 A M EDT 1.0 {tablet_at_bedtime} active Famotidine 4 0 MG eCW1 ([facility]) Insurance Providers Payer name Policy type / Coverage type Policy ID Covered green party ID Covered green party's relationship to pace Policy Pace Plan Information BCBS ANTHE[place] 834/332 [id number] [id number] BCBS ANTHE[place] 834/332 [id number] HU2 [id number] SELF PAY ONLY [id number] SP [id number] [place] PPO 302/307 [id number] HU2 [id number] MVP [facility] F [id number] SELF 800 [id number] [place] BCBS B [id number] P [id number] ANSI-Commercial [id number] ANSI-Commercial [id number] ANSI-Commercial [id number] ANSI-Commercial [id number] ANSI-Commercial [id number] ANSI-Commercial [id number] ANSI-Commercial [id number] ANSI-Commercial [id number] ANSI-Commercial [id number] ANSI-Commercial [id number] ANSI-Commercial [id number] ANSI-Commercial [id number] BCBS ANTHE[place] [id number] [id number] ANSI-Commercial [id number] ANSI-Commercial [id number] ANSI-Commercial [id number] ANSI-Commercial [id number] [place] PPO 302/307 [id number] SP [id number] BLUE CARD C [id number] [id number] [facility] [id number] SP [id number] [place] PPO 302/307 [id number] UNK2 [id number] BC[place] ANTHE[place] [id number] HU2 [id number] [employer]CELLUS BCBS B [id number] O [id number] [place] PPO 302/307 [id number] [id number] [facility] O [id number] S [id number] MVP Commercial [id number] Family Dependent [id number] [facility] O [id number] S [id number] [facility] [id number] SP [id number] [facility] [id number] SP [id number] MVP H [id number] Self [id number] EXCELLUS H [id number] Spouse [id number] [place] PPO 302/307 [id number] HU2 [id number] [employer] [facility] F [id number] SPOUSE [id number] P HEALTH CARE [id number] SP [id number] [place]US BCBS B [id number] P [id number] BCBS/Excell[employer] Commercial Family Dependent [facility] PHY [id number] SP [id number] Problems, Conditions, and Diagnoses Code Display Name Description Problem Type Effective Dates Data Source(s) Z85.820 261143185 History of melanoma Problem 01/19/2020 12:00 :00 AM EST eCW1 ([facility]) Z85.828 [id number] History of basal cell carcinoma Problem 01/19/2020 12:00:00 AM EST eCW1 ([facility]) M17.0 [id number] Osteoarthritis of barrett th knees, unspecified osteoarthritis type Problem 09/24/2019 12:00:00 AM EDT eCW1 ([facility]) Results ID Date Data Source [id number] 02/09/2020 12:00:00 AM EST [facility] Name Value Range Interpretation Code Description Data Denisa rce(s) Supporting Document(s) 2019-nCoV RNA XXX CLIF+probe-Imp [facility] This lab was ordered by [facility] and reported by [facility]. ID Date Data Source WOUND CULTURE 01/19/2020 12:00:00 AM EST eCW1 ([facility]) Name Value Range Interpretation Code Description Data Denisa rce(s) Supporting Document(s) FULL REPORT IN LAB NOTES (eCW and [facility]). WOUND CULTURE eCW1 ([facility]) ID Date Data Source [id number] 10/18/2019 09:05:00 AM EDT [facility] Name Value Range Interpretation Code Description Data Denisa rce(s) Supporting Document(s) Protein,Total,Urine 43.1 mg/dL Not Estab. [facility] Albumin, U 23.3 % [facility] Pauem-9-Qahkcwrj, U 4.7 % [facility] Hvdvc-9-Aynwmtmn, U 9.5 % [facility] Beta Globulin, U [...] PDF . [facility] ID Date Data Source [id number] 10/14/2019 05:05:00 PM EDT [facility] Name Value Range Interpretation Code Description Data Denisa rce(s) Supporting Document(s) Free [place] Lt Chains,S 412.7 mg/L 3.3-19.4 Above high normal [facility] Free Lambda Lt Chains,S 5.7-26.3 Below low normal [facility] [place]/Lambda Ratio,S [facility] Unable to calculate result since non-num jorge result obtained forcomponent test. Procedure Social History Code Duration Value Status Description Data Source(s ) Smoking 01/19/2020 12:00:00 AM EST Never Smoker completed Never S moker eCW1 ([facility]) Smoking 01/19/2020 12:00:00 AM EST Never Smoker completed Never S moker eCW1 ([facility]) Smoking 01/19/2020 12:00:00 AM EST Never Smoker completed Never S moker eCW1 ([facility]) Smoking 01/19/2020 12:00:00 AM EST Never Smoker completed Never S moker eCW1 ([facility]) Smoking 01/19/2020 12:00:00 AM EST Never Smoker completed Never S moker eCW1 ([facility]) Smoking 12/08/2019 12:00:00 AM EDT Never Smoker completed Never S moker eCW1 ([facility]) Smoking 12/08/2019 12:00:00 AM EDT Never Smoker completed Never S moker eCW1 ([facility]) Vital Signs ID Date Data Source UNK Name Value Range Interpretation Code Description Data Source(s) Diastolic blood pressure 76 mm[Hg] 76 mm[Hg] eCW1 ([facility]) Systolic blood pressure 142 mm[Hg] 142 mm[Hg] e CW1 ([facility]) Body mass index (BMI) [Ratio] 46.64 kg/m2 46.64 kg/m2 [facility] ([facility]) Body height 66 [in_i] 66 [in_i] eCW1 ([facility]) Body weight 289 [lb_av] 289 [lb_av] eCW1 ([facility]) Diastolic blood pressure 80 mm[Hg] 80 mm[Hg] eCW1 ([facility]) Systolic blood pressure 140 mm[Hg] 140 mm[Hg] e CW1 ([facility]) Body temperature 97 [degF] 97 [degF] eCW1 ([facility]) Respiratory rate 20 /min 20 /min eCW1 ([facility]) Heart rate 90 /min 90 /min eCW1 ([facility]) Body mass index (BMI) [Ratio] 46.96 kg/m2 46.96 kg/m2 W1 ([facility]) Body height 66 [in_i] 66 [in_i] eCW1 ([facility]) Body weight 291 [lb_av] 291 [lb_av] eCW1 ([facility]) Diastolic blood pressure 80 mm[Hg] 80 mm[Hg] eCW1 ([facility]) Systolic blood pressure 120 mm[Hg] 120 mm[Hg] e CW1 ([facility]) Body temperature 98.5 [degF] 98.5 [degF] eCW1 ( [facility]) Respiratory rate 18 /min 18 /min eCW1 ([facility]) Heart rate 71 /min 71 /min eCW1 ([facility]) Body mass index (BMI) [Ratio] 47.06 kg/m2 47.06 kg/m2 eCW1 ([facility]) Body height 66 [in_i] 66 [in_i] eCW1 ([facility]) Body weight 291.6 [lb_av] 291.6 [lb_av] eCW1 ([facility]) Patient Treatment Plan of Care Planned Activity Planned Date Details Description Data Source (s) doxycycline hyclate 100 MG Oral Capsule 01/24/2020 12:00:00 AM EST eCW1 ([facility]) doxycycline hyclate 100 MG Oral Capsule 01/24/2020 12:00:00 AM EST eCW1 ([facility]) doxycycline hyclate 100 MG Oral Capsule 01/24/2020 12:00:00 AM EST eCW1 ([facility]) doxycycline hyclate 100 MG Oral Capsule 01/24/2020 12:00:00 AM EST eCW1 ([facility]) doxycycline hyclate 100 MG Oral Capsule 01/24/2020 12:00:00 AM EST eCW1 ([facility]) Triamcinolone Acetonide 1 MG/ML Topical Cream 01/19/2020 12:00:00 A M EST eCW1 ([facility]) Triamcinolone Acetonide 1 MG/ML Topical Cream 01/19/2020 12:00:00 A M EST eCW1 ([facility]) Triamcinolone Acetonide 1 MG/ML Topical Cream 01/19/2020 12:00:00 A M EST eCW1 ([facility]) Triamcinolone Acetonide 1 MG/ML Topical Cream 01/19/2020 12:00:00 A M EST eCW1 ([facility]) Triamcinolone Acetonide 1 MG/ML Topical Cream 01/19/2020 12:00:00 A M EST eCW1 ([facility]) Robaxin 500 MG 12/08/2019 12:00:00 AM EDT eCW1 ([facility]) Diclofenac Sodium 0.01 MG/MG Topical Gel [Voltaren] 12/08/19 12:00:00 AM EDT eCW1 ([facility]) Robaxin 500 MG 12/08/2019 12:00:00 AM EDT eCW1 ([facility]) Diclofenac Sodium 0.01 MG/MG Topical Gel [Voltaren] 12/08/19 12:00:00 AM EDT eCW1 ([facility])
[2020-04-07 11:42] LABS: ALBUMIN 3.2 GM/DL (3.2-5.2); ALT/SGPT 27 U/L (12-78); BILIRUBIN,DIRECT 0.2 MG/DL (0.0-0.2); BILIRUBIN,TOTAL 0.5 MG/DL (0.2-1.0); BLOOD UREA NITROGEN 13 MG/DL (7-18); CALCIUM LEVEL 9.3 MG/DL (8.5-10.1); CARBON DIOXIDE LEVEL 25 MEQ/L (21-32); CHLORIDE LEVEL 102 MEQ/L (98-107); CK-MB VALUE MASS 1.1 NG/ML (<3.6); CPK CREATINE PHOSPHOKINASE 33 U/L (26-192); CREATININE FOR GFR 0.97 MG/DL (0.55-1.30); GLOMERULAR FILTRATION RATE > 60.0 (>51); GLUCOSE, FASTING 103 MG/DL (70-100); MB/CK RELATIVE INDEX 3.33 (< OR =4); POTASSIUM SERUM 4.2 MEQ/L (3.5-5.1); SODIUM LEVEL 133 MEQ/L (136-145); TOTAL PROTEIN 10.2 GM/DL (6.4-8.2); TROPONIN I < 0.02 NG/ML (< 0.10)
[2020-04-07] MEDS ORDERED: ISOVUE-370 76% 100ML VIAL As Ordered ONE ×2 (11:49→12:06)
[2020-04-07 12:11] LABS: BASOPHILS 2 % (0-1); EOSINOPHILS 6 % (0-3); LYMPHOCYTES 12 % (16-44); METAMYELOCYTES 1 % (0-0); MONOCYTES 11 % (0-5); NEUTROPHILS 60 % (28-66)
[2020-04-07 12:12] LABS: PLATELET ESTIMATE DECREASED (NORMAL)
--- NOTE | 2020-04-07 12:48 | REP ---
INDICATION: shortness of breath/ multiple myeloma. COMPARISON: 10/28/2014. TECHNIQUE: CT angiogram chest performed following the intravenous administration of 100 cc of Isovue 370. Sagittal and coronal reconstruction images are performed. The study is limited due to breathing motion. FINDINGS: Lungs: There is a 3 mm nodular density in the left upper lobe on image 42 which is of doubtful clinical significance. This is not seen on the prior study. There is no infiltrate. There is mild bibasilar linear fibro atelectatic change. Mediastinum: No adenopathy. Enlarged left lobe of thyroid is again seen extending into the superior mediastinum. Pulmonary arteries: There is no definite pulmonary embolism centrally. Second order pulmonary arterial branches are not optimally visualized due to breathing motion. Deanna: No adenopathy. Axilla: No adenopathy. Pleura: No effusion. Heart: Not enlarged. Thoracic aorta: No aneurysm or dissection. Upper abdominal structures: Unremarkable. Prior cholecystectomy. Visualized osseous structures: There is healing right 9th rib fracture laterally. I suspect a 5 mm lytic lesion anteriorly on the left than the C7 vertebral body. There appears to be a lytic lesion in the superior aspect of the T8 vertebral body and in the inferior aspect of L1. There is a lytic lesion in the left humeral head. Two small lytic lesions are seen in the right humeral head. There is a large lytic lesion in the posterior right 4th rib. Findings are consistent with the patient's diagnosis of multiple myeloma.. IMPRESSION: No definite pulmonary embolism. No infiltrate seen. Multiple lytic osseous lesions compatible with multiple myeloma. <Electronically signed by Ciro Ruth > 04/07/20 [id number]
[2020-04-07] MEDS ORDERED: PROV108A INH (13:29)
[2020-04-07 14:16] VITALS: BP 160/75
--- NOTE | 2020-04-07 19:47 | ECGEPIP ---
[facility] - ED Test Date: 2020-04-07 Pat Name: KELLEN DAVENPORT Department: Room: - Gender: Female [employer]ar Operator Helper: jorge luis : 1960 Requested By: CINTIA Grajeda Order Number: [id number] Reading MD: Jagdeep Price Measurements Intervals [place] Rate: 73 P: MS: 0 QRS: 36 QRSD: 102 T: 117 QT: 402 QTc: 446 Interpretive Statements SINUS RHYTHM WITH FREQUENT VENTRICULAR AND SUPRAVENTRICULAR PREMATURE COMPLEXES MODERATE ST DEPRESSION ABNORMAL QRS-T ANGLE Electronically Signed on 04-07-2020 19:47:39 EST by Jagdeep Price
--- NOTE | 2020-04-08 09:26 | ED PDOC ---
Post-Departure Follow-Up irvin ladd faxed cta [facility] for fu Leighann Hoffman MD Apr 08, 2020 09:26
[2020-04-13] MEDS ORDERED: ZARX0.05 SC (09:49)
== END 2020-04-07 14:44 | disposition home or self-care (01) ==
LOC: M ED 10:13
DX: R06.02 Shortness of breath (principal); I10 Essential (primary) hypertension; J45.909 Unspecified asthma, uncomplicated; C90.00 Multiple myeloma not having achieved remission; K21.9 Gastro-esophageal reflux disease without esophagitis; G47.33 Obstructive sleep apnea (adult) (pediatric); Z99.89 Dependence on other enabling machines and devices; Z79.899 Other long term (current) drug therapy; Z79.82 Long term (current) use of aspirin; Z88.0 Allergy status to penicillin; Z88.8 Allergy status to other drugs, medicaments and biological substances; Z91.040 Latex allergy status

== ENCOUNTER 2020-05-04 12:54 | Outpatient (RCR) | payer BC ==
[~2020-05-04 12:54] MED LIST changes: +PERM5CRE9 TOP; +PROV108A INH
[2020-05-08] MEDS ORDERED: POMA2CAP PO (13:29)
[2020-05-12] MEDS ORDERED: CYCL-707 PO (08:44)
[2020-05-16] MEDS ORDERED: OXYC-517 PO (15:39)
[2020-05-25] MEDS ORDERED: ZARX0.05 SC (14:28)
[2020-05-30] MEDS ORDERED: ZARX0.05 SC (14:07)
[2020-06-01] MEDS ORDERED: LEVO500T3 PO (15:26)
[2020-06-01] MEDS ORDERED: PROC10TA4 PO (15:26)
[2020-06-01] MEDS ORDERED: SUCR1SS PO (18:18)
[2020-06-01] MEDS ORDERED: PANT40TA29 PO (18:21)
[2020-06-02] MEDS ORDERED: CIPR-249 PO (10:39)
== END 2020-05-31 ==
LOC: M PT 12:54
PROVIDERS: ATTEND Specialist
DX: C90.00 Multiple myeloma not having achieved remission (principal)

== ENCOUNTER → 2020-05-10 | Outpatient (CLI) | payer BC ==
[~2020-05-10] MED LIST changes: +CYCL-707 PO
--- NOTE | 2020-05-10 16:02 | REPPI ---
INDICATION: M54.5 ACUTE RIGHT SIDED LOW BACK PAIN WITHOUT SCIATICA COMPARISON: None. TECHNIQUE: AP, lateral, bilateral oblique, and coned-down views of the lumbar spine. FINDINGS: Alignment and lordosis maintained. Lateral view demonstrates a mild compression deformity at L1 with approximately 10% loss of superior vertebral body height which appears to be relatively new when compared with sagittal chest CT images dated 04/07/2020 which also demonstrated a suspected pathologic lytic lesion. Remainder of the examination demonstrates normal alignment and lordosis along with moderate multilevel degenerative changes including endplate sclerosis, facet arthropathy and marginal spurring. IMPRESSION: 1. Mild compression deformity at L1 new compared with chest CT dated 04/07/2020 which did however demonstrate a small L1 vertebral body lytic presumed pathologic lesion. 2. Mild/moderate multilevel degenerative spondylosis. <Electronically signed by Sedrick Franco > 05/10/20 [id number]
[2020-05-10 18:35] LABS: APPEARANCE, URINE HAZY (CLEAR); BACTERIA, URINE AUTO NEGATIVE (NEGATIVE); BILIRUBIN, URINE AUTO 2+ (NEGATIVE); BLOOD, URINE BLOOD NEGATIVE (NEGATIVE); CALCIUM OXALATE CRYSTALS SMALL; COLOR, URINE YELLOW (YELLOW); GLUCOSE, URINE (UA) AUTO NEGATIVE (NEGATIVE); KETONE, URINE AUTO NEGATIVE (NEGATIVE); LEUKOCYTE ESTERASE, URINE AUTO 1+ (NEGATIVE); MUCUS, URINE SMALL (NEGATIVE); NITRITE, URINE AUTO NEGATIVE (NEGATIVE); PROTEIN, URINE AUTO 2+ mg/dL (NEGATIVE); RBC, URINE AUTO 5 /HPF (0-3); SPECIFIC GRAVITY URINE AUTO 1.031 (1.002-1.035); SQUAMOUS EPITHELIAL CELL UR AU 1 /HPF (0-6); UROBILINOGEN, URINE AUTO 0.2 mg/dL (0.0-2.0); WBC, URINE AUTO 17 /HPF (0-3)
== END ==
LOC: M PLAIMG 15:34
PROVIDERS: ATTEND Nurse Practitioner Family
DX: S32.010A Wedge compression fracture of first lumbar vertebra, initial encounter for closed fracture (principal); X58.XXXA Exposure to other specified factors, initial encounter; Y92.9 Unspecified place or not applicable; M47.816 Spondylosis without myelopathy or radiculopathy, lumbar region

== ENCOUNTER → 2020-06-11 | Outpatient (CLI) | payer BC ==
[~2020-06-11] MED LIST changes: +ACYC1TAB PO; -ACYC400T PO; +CIPR-249 PO; +OXYC-517 PO; +PANT40TA29 PO; +PROC10TA4 PO; +SUCR1SS PO
== END ==
LOC: M LAB 13:18
PROVIDERS: ATTEND Specialist
DX: C90.00 Multiple myeloma not having achieved remission (principal)

== ENCOUNTER 2020-06-12 14:58 | Outpatient (CLI) | payer BC ==
[~2020-06-12] VITALS: Ht 170.2 cm; Wt 129.3 kg
[~2020-06-12 14:58] MED LIST changes: +ACETAMINOPHEN TAB 650MG DOSE (2X325MG) PO SCH; +diphenhydrAMINE 25MG CAP PO SCH
[2020-06-12 15:05] VITALS: BP 143/66
[2020-06-12 16:15] VITALS: BP 133/63
[2020-06-12] MEDS ORDERED: SODIUM CHLORIDE 0.9% INJ 10 ML SYR IV PRN (17:10)
[2020-06-12 17:15] VITALS: BP 139/71
[2020-06-12 18:00] VITALS: BP 130/90
[2020-06-13] MEDS ORDERED: SODIUM CHLORIDE 0.9% INJ 10 ML SYR IV SCH (09:00)
== END 2020-06-12 18:00 | disposition home or self-care (01) ==
LOC: M INFU 14:58
PROVIDERS: ATTEND Specialist
DX: C90.00 Multiple myeloma not having achieved remission (principal); Z88.1 Allergy status to other antibiotic agents; Z91.040 Latex allergy status
CPT/HCPCS: 36430; 96523; J1642; P9016

== ENCOUNTER → 2020-06-30 | Outpatient (REF) | payer BC ==
[~2020-06-30] MED LIST changes: -ACETAMINOPHEN TAB 650MG DOSE (2X325MG) PO SCH; -diphenhydrAMINE 25MG CAP PO SCH
== END ==
LOC: M LAB REF 13:41
PROVIDERS: ATTEND Physician Assistant Medical
DX: D64.9 Anemia, unspecified (principal)

== ENCOUNTER → 2020-07-05 | Outpatient (REF) | payer BC ==
[2020-07-05 15:39] LABS: HEMOGLOBIN 8.9 g/dl (12.0-15.5); PLATELET COUNT, AUTOMATED 112 10^3/uL (150-450)
[2020-07-05 17:06] LABS: ALT/SGPT 26 U/L (12-78); BILIRUBIN,TOTAL 0.5 MG/DL (0.2-1.0); BLOOD UREA NITROGEN 10 MG/DL (7-18); CALCIUM LEVEL 8.9 MG/DL (8.8-10.2); CARBON DIOXIDE LEVEL 22 MEQ/L (21-32); CHLORIDE LEVEL 108 MEQ/L (98-107); CREATININE FOR GFR 0.88 MG/DL (0.55-1.30); GLOMERULAR FILTRATION RATE > 60.0 (>45); GLUCOSE, FASTING 134 MG/DL (70-100); POTASSIUM SERUM 3.2 MEQ/L (3.5-5.1); SODIUM LEVEL 137 MEQ/L (136-145)
== END ==
LOC: M LAB REF 15:28
PROVIDERS: ATTEND Physician Assistant Medical
DX: D64.9 Anemia, unspecified (principal)

== ENCOUNTER → 2020-07-07 | Outpatient (REF) | payer BC ==
[~2020-07-07] MED LIST changes: +LIDO1CRE42 TOP; -LIDO2.5C15 TOP
[2020-07-07 14:09] LABS: HEMATOCRIT 26.9 % (36.0-47.0); HEMOGLOBIN 8.6 g/dl (12.0-15.5); MEAN CORPUSCULAR HEMOGLOBIN 32.5 pg (27.0-33.0); MEAN CORPUSCULAR VOLUME 101.5 fl (80.0-96.0); PLATELET COUNT, AUTOMATED 108 10^3/uL (150-450); RED BLOOD COUNT 2.65 10^6/uL (4.00-5.40); WHITE BLOOD COUNT 3.2 10^3/uL (4.0-10.0)
[2020-07-07 14:31] LABS: ALBUMIN 2.9 GM/DL (3.2-5.2); ALT/SGPT 27 U/L (12-78); BILIRUBIN,TOTAL 0.5 MG/DL (0.2-1.0); BLOOD UREA NITROGEN 7 MG/DL (7-18); CALCIUM LEVEL 8.8 MG/DL (8.8-10.2); CARBON DIOXIDE LEVEL 27 MEQ/L (21-32); CHLORIDE LEVEL 107 MEQ/L (98-107); CREATININE FOR GFR 0.69 MG/DL (0.55-1.30); GLOMERULAR FILTRATION RATE > 60.0 (>45); GLUCOSE, FASTING 110 MG/DL (70-100); POTASSIUM SERUM 3.2 MEQ/L (3.5-5.1); SODIUM LEVEL 137 MEQ/L (136-145); TOTAL PROTEIN 9.8 GM/DL (6.4-8.2)
== END ==
LOC: M LAB REF 13:46
PROVIDERS: ATTEND Physician Assistant Medical
DX: D64.9 Anemia, unspecified (principal)

== ENCOUNTER → 2020-07-10 | Outpatient (REF) | payer BC ==
[2020-07-10 14:34] LABS: HEMATOCRIT 26.5 % (36.0-47.0); HEMOGLOBIN 8.4 g/dl (12.0-15.5); MEAN CORPUSCULAR HEMOGLOBIN 32.7 pg (27.0-33.0); MEAN CORPUSCULAR HGB CONC 31.7 g/dl (32.0-36.5); MEAN CORPUSCULAR VOLUME 103.1 fl (80.0-96.0); PLATELET COUNT, AUTOMATED 100 10^3/uL (150-450); RED BLOOD COUNT 2.57 10^6/uL (4.00-5.40); WHITE BLOOD COUNT 3.2 10^3/uL (4.0-10.0)
[2020-07-10 15:06] LABS: ALBUMIN 2.8 GM/DL (3.2-5.2); ALT/SGPT 25 U/L (12-78); BILIRUBIN,TOTAL 0.4 MG/DL (0.2-1.0); BLOOD UREA NITROGEN 7 MG/DL (7-18); CALCIUM LEVEL 8.4 MG/DL (8.8-10.2); CARBON DIOXIDE LEVEL 27 MEQ/L (21-32); CHLORIDE LEVEL 108 MEQ/L (98-107); CREATININE FOR GFR 0.78 MG/DL (0.55-1.30); GLOMERULAR FILTRATION RATE > 60.0 (>45); GLUCOSE, FASTING 102 MG/DL (70-100); POTASSIUM SERUM 3.2 MEQ/L (3.5-5.1); SODIUM LEVEL 138 MEQ/L (136-145); TOTAL PROTEIN 10.3 GM/DL (6.4-8.2)
== END ==
LOC: M LAB REF 14:12
PROVIDERS: ATTEND Physician Assistant Medical
DX: D64.9 Anemia, unspecified (principal)

== ENCOUNTER 2020-10-04 08:46 | Outpatient (CLI) | payer BC ==
[~2020-10-04] VITALS: Ht 170.2 cm; Wt 129.0 kg
[~2020-10-04 08:46] MED LIST changes: +ACETAMINOPHEN TAB 650MG DOSE (2X325MG) PO ONE; +DICL1GEL3 TOP; +POTA20TA6 PO; +SODIUM CHLORIDE 0.9% INJ 10 ML SYR IV PRN; +XERE5CRE TOP; +diphenhydrAMINE 50MG CAP PO ONE
[2020-10-04] MEDS ORDERED: SODIUM CHLORIDE 0.9% INJ 10 ML SYR IV SCH (09:00)
[2020-10-04 09:09] VITALS: BP 149/82
[2020-10-04 09:21] VITALS: BP 149/82
[2020-10-04 09:35] VITALS: BP 143/76
[2020-10-04 10:48] VITALS: BP 130/80
== END 2020-10-04 11:00 | disposition home or self-care (01) ==
LOC: M INFU 08:46
PROVIDERS: ATTEND Specialist
DX: C90.00 Multiple myeloma not having achieved remission (principal); Z88.1 Allergy status to other antibiotic agents; Z91.040 Latex allergy status
CPT/HCPCS: 36430; J1642; P9016

== ENCOUNTER → 2020-10-05 | Outpatient (CLI) | payer BC ==
[~2020-10-05] MED LIST changes: -ACETAMINOPHEN TAB 650MG DOSE (2X325MG) PO ONE; -SODIUM CHLORIDE 0.9% INJ 10 ML SYR IV PRN; -diphenhydrAMINE 50MG CAP PO ONE
--- NOTE | 2020-10-05 16:27 | REP ---
INDICATION: FOR RIB PAIN. COMPARISON: None. TECHNIQUE: Four views of the left ribs FINDINGS: There is a lucency seen involving the anterior aspect of the left 8th and 9th ribs but these appear to have some callus formation adjacent to them. IMPRESSION: Age undetermined but probably healing left 8th and 9th rib fractures. <Electronically signed by Phil Lopes > 10/05/20 [id number]
== END ==
LOC: M RAD 15:15
PROVIDERS: ATTEND Specialist
DX: R07.81 Pleurodynia (principal)

== ENCOUNTER 2021-01-05 13:32 | Outpatient (CLI) | payer BC ==
[~2021-01-05] VITALS: Ht 170.2 cm; Wt 112.0 kg
[~2021-01-05 13:32] MED LIST changes: +AMLO2.5T3; +LEVE500T5; +LOPE2CAP; +MEPR750S FT; +METO1TAB87; +ONDA8TAB10; +POSA100T; +RIBA200C5 PO
[2021-01-05 15:30] VITALS: BP 126/59
[2021-01-05] MEDS ORDERED: SODIUM CHLORIDE 0.9% INJ 10 ML SYR IV PRN (15:55)
[2021-01-05] MEDS ORDERED: diphenhydrAMINE 50MG/ML VIAL (J1200) IV ONE (16:00)
[2021-01-05] MEDS ORDERED: IMMUNE GLOBULIN 10% 40 GM in IV 1 EA IV ONE (16:00)
[2021-01-05 16:45] VITALS: BP 142/72
[2021-01-05 17:15] VITALS: BP 134/63
[2021-01-05 17:45] VITALS: BP 137/65
[2021-01-05 19:05] VITALS: BP 157/80
[2021-01-05] MEDS ORDERED: RIBA200C5 PO (19:33)
[2021-01-06] MEDS ORDERED: SODIUM CHLORIDE 0.9% INJ 10 ML SYR IV SCH (09:00)
== END 2021-01-05 19:05 | disposition home or self-care (01) ==
LOC: M INFU 13:32
PROVIDERS: ATTEND Specialist
DX: C90.00 Multiple myeloma not having achieved remission (principal); Z88.1 Allergy status to other antibiotic agents; Z91.040 Latex allergy status
CPT/HCPCS: 96365; 96366; 96375; 96523; J1200; J1459; J1642; J3480